=== PATIENT | male | born 1945 | race Caucasian/White ===

== ENCOUNTER 2017-07-22 16:21 | Inpatient (IN) | payer OTHER, MEDICARE ==
[~2017-07-22] VITALS: Ht 177.8 cm; Wt 75.0 kg
[2017-07-22 16:23] VITALS: BP 118/67; PULSE 81; RESP 16; TEMP 98.8; O2SAT 98
[2017-07-22] MEDS ORDERED: SODIUM CHLORIDE 0.9% FLUSH 10 ML FLUSH IVF PRN (17:15)
[2017-07-22 17:25] VITALS: BP 131/72; PULSE 78; RESP 18; O2SAT 98
[2017-07-22] MEDS ORDERED: METO1TAB42 PO (17:33)
[2017-07-22] MEDS ORDERED: PLAV75TA29 PO (17:33)
[2017-07-22] MEDS ORDERED: ISOS10TA3 PO (17:33)
[2017-07-22] MEDS ORDERED: BUPR100CR PO (17:34)
[2017-07-22] MEDS ORDERED: VITA1000 PO (17:34)
[2017-07-22] MEDS ORDERED: ASPI-516 CHEW (17:34)
[2017-07-22] MEDS ORDERED: VITAMIN B (17:34)
[2017-07-22] MEDS ORDERED: methylPREDNISolone SOD SUCC 125 MG/2 ML VIAL IV PUSH ONE (17:45)
--- NOTE | 2017-07-22 17:47 | RADRPT ---
EXAM DATE/TIME: 07/22/2017 17:28 [place] COMPARISON: No previous studies available for comparison. INDICATIONS : Shortness of breath, cough, and wheezing for one day. MEDICAL HISTORY : Chronic obstructive pulmonary disease. Hypertension Myocardial infarction. Stroke. SURGICAL HISTORY : CABG. ENCOUNTER: Initial ACUITY: 1 day PAIN SCORE: 0/10 LOCATION: Bilateral chest FINDINGS: A single view of the chest demonstrates the lungs to be hyperinflated with bilateral calcified granul omata. Bihilar granulomatous type calcifications are also present. There are parenchymal densities la terally in the right lower lung field which may represent additional areas of granulomatous disease a lthough early infiltrate cannot be excluded as these areas are not completely calcified. No associate d effusions. Heart size is normal. Intact median sternotomy wires. Osseous structures are intact. CONCLUSION: 1. Old granulomatous disease. 2. Airspace process laterally in the right lower lung field may represent additional areas of partial ly calcified granulomatous disease although early infiltrate cannot be excluded. I have no priors to establish chronicity. Noncontrasted CT scan of the chest be performed for further characterization if clinically warranted. Godwin Toro MD on July 22, 2017 at 17:42 Board Certified Radiologist. This report was verified electronically.
[2017-07-22 17:49] LABS: AUTOMATED NEUTROPHIL # 20.3 TH/MM3 (1.8-7.7); BASOPHIL # 0.1 TH/MM3 (0-0.2); BASOPHIL % 0.2 % (0.0-2.0); EOSINOPHIL % 0.1 % (0.0-4.0); HEMATOCRIT 41.1 % (39.0-51.0); HEMOGLOBIN 13.7 GM/DL (13.0-17.0); LYMPHOCYTE # 3.5 TH/MM3 (1.0-4.8); MEAN CORPUSCULAR HEMOGLOBIN 32.7 PG (27.0-34.0); MEAN CORPUSCULAR HGB CONC 33.4 % (32.0-36.0); MEAN PLATELET VOLUME 8.7 FL (7.0-11.0); MONO % 11.2 % (0.0-8.0); NEUT % 75.5 % (16.0-70.0); PLATELET COUNT 239 TH/MM3 (150-450); RED BLOOD COUNT 4.19 MIL/MM3 (4.50-5.90); RED CELL DISTRIBUTION WIDTH 13.7 % (11.6-17.2); WHITE BLOOD COUNT 26.9 TH/MM3 (4.0-11.0)
--- NOTE | 2017-07-22 17:50 | PD ---
HPI Chief Complaint: General Weakness Time Seen by Provider: 17:13 Travel History International Travel<30 days: No Contact w/Intl Traveler<30days: No Traveled to known affect area: No History of Present Illness HPI 71 year old male with history of [place] and COPD in ED presented with wheezing, " dry heaving" and chills onset this morning. The patient was concerned because he felt similar from his previous [place] in 2000. However he denies current chest pain, abd pain, N/V, and fevers. The patient has not been using his inhalers at home, and has been have a green sputum productive cough. He did get a flu shot this year. Risk Factors: Previous [place], CAD Modifying Factors: Associated sign and symptoms: Wheezing, SOB, cough PFSH Past Medical History Blood Disorders: No Cardiac Catheterization: Yes Cardiovascular Problems: Yes Chest Pain: Yes Cerebrovascular Accident: Yes Hypertension: Yes Inguinal Hernia: Yes Past Surgical History Cardiac Surgery: Yes (TRIPLE BYPASS) Social History Alcohol Use: No Tobacco Use: Yes (1 PPD) Substance Use: No Allergies-Medications (Allergen,Severity, Reaction): Coded Allergies: No Known Allergies (Verified Allergy, Unknown, 07/22/17) Reported Meds & Prescriptions Reported Meds & Active Scripts Active Reported Wellbutrin SR 12 HR (Bupropion HCl) 100 Mg Tab 100 Mg PO Q12HR [Vitamin B] Vitamin D-1000 (Cholecalciferol) 1,000 Unit Tab 1,000 Units PO DAILY Aspirin 81 Mg Chew 81 Mg CHEW DAILY Plavix (Clopidogrel Bisulfate) 75 Mg Tab 75 Mg PO DAILY Isosorbide Mononitrate 10 Mg Tab 10 Mg PO BID Take 2 doses 7 hours apart. Metoprolol Succinate ER 24 HR (Metoprolol Succinate) 25 Mg Tab 25 Mg PO DAILY Review of Systems Except as stated in HPI: all other systems reviewed are Neg Physical Exam Narrative GENERAL: Elderly appearing male resting in ED with fiance at bedside, no acute distress. SKIN: Warm and dry. HEAD: Atraumatic. Normocephalic. EYES: Pupils equal and round. No scleral icterus. No injection or drainage. ENT: No nasal bleeding or discharge. Mucous membranes pink and moist. NECK: Trachea midline. No JVD. Supple. CARDIOVASCULAR: Regular rate and rhythm. RESPIRATORY: No accessory muscle use. wheezing throughout, breath sounds equal bilaterally. GASTROINTESTINAL: Abdomen soft, non-tender, nondistended. Hepatic and splenic margins not palpable. MUSCULOSKELETAL: Extremities without clubbing, cyanosis, or edema. No obvious deformities. NEUROLOGICAL: Awake and alert. No obvious cranial nerve deficits. Motor grossly within normal limits. Five out of 5 muscle strength in the arms and legs. Normal speech. PSYCHIATRIC: Appropriate mood and affect; insight and judgment normal. Data Data Last Documented VS Vital Signs Date Time Temp Pulse Resp B/P (MAP) Pulse Ox O2 Delivery O2 Flow Rate FiO2 07/22/17 17:25 98 Room Air 07/22/17 17:25 78 18 07/22/17 17:25 07/22/17 16:23 98.8 Orders Orders Electrocardiogram (07/22/17 16:36) Complete Blood Count With Diff (07/22/17 16:36) Basic Metabolic Panel (Bmp) (07/22/17 16:36) Ckmb (Isoenzyme) Profile (07/22/17 16:36) Troponin I (07/22/17 16:36) Comprehensive Metabolic Panel (07/22/17 17:13) Act Partial Throm Time (Ptt) (07/22/17 17:13) Prothrombin Time / Inr (Pt) (07/22/17 17:13) Ckmb (Isoenzyme) Profile (07/22/17 17:13) Troponin I (07/22/17 17:13) Influenzae A/B Antigen (07/22/17 17:13) Iv Access Insert/Monitor (07/22/17 17:13) Electrocardiogram (07/22/17 17:13) Ecg Monitoring (07/22/17 17:13) Oximetry (07/22/17 17:13) Oxygen Administration (07/22/17 17:13) Chest, Single Ap (07/22/17 17:13) Sodium Chloride 0.9% Flush (Ns Flush) (07/22/17 17:15) Methylprednisolone So Succ Inj (Solumedr (07/22/17 17:45) Albuterol-Ipratropium Neb (Duoneb Neb) (07/22/17 17:45) Lactic Acid Sepsis Protocol (07/22/17 18:28) Blood Culture (07/22/17 18:28) Ceftriaxone Inj (Rocephin Inj) (07/22/17 18:30) Azithromycin Inj (Zithromax Inj) (07/22/17 18:30) Admit Order (Ed Use Only) (07/22/17 19:12) Methylprednisolone So Succ Inj (Solumedr (07/23/17 00:00) Albuterol-Ipratropium Neb (Duoneb Neb) (07/22/17 19:15) Budeson-Formot 160-4.5 Mcg Inh (Symbicor (07/22/17 21:00) Ceftriaxone Inj (Rocephin Inj) (07/23/17 19:00) Azithromycin Inj (Zithromax Inj) (07/23/17 19:00) Place In Observation (07/22/17 ) Vital Signs (Adult) Q4H (07/22/17 19:11) Activity Oob Ad Shabnam (07/22/17 19:11) Diet Regular Basic (07/23/17 Breakfast) Sodium Chloride 0.9% Flush (Ns Flush) (07/22/17 19:15) Sodium Chloride 0.9% Flush (Ns Flush) (07/22/17 21:00) Ondansetron Inj (Zofran Inj) (07/22/17 19:15) Comprehensive Metabolic Panel (07/23/17 06:00) Complete Blood Count With Diff (07/23/17 06:00) Scd Bilateral/Knee High ALEX.BID (07/22/17 19:11) Jake Bilateral/Knee High ALEX.QSHIFT (07/22/17 19:13) Acetaminophen (Tylenol) (07/22/17 19:15) Acetamin-Hydrocod 325-5 Mg (Ogden 5-325 (07/22/17 19:15) Acetamin-Hydrocod 325-10 Mg (Ogden 10-32 (07/22/17 19:15) Docusate Sodium-Senna (Kaylene-Colace) (07/22/17 21:00) Magnesium Hydroxide Liq (Milk Of Magnesi (07/22/17 19:15) Sennosides (Senokot) (07/22/17 19:15) Bisacodyl Supp (Dulcolax Supp) (07/22/17 19:15) Lactulose Liq (Lactulose Liq) (07/22/17 19:15) Aspirin Chew (Aspirin Chew) (07/23/17 09:00) Bupropion Sr 12 Hr (Wellbutrin Sr 12 Hr) (07/22/17 21:00) Clopidogrel (Plavix) (07/23/17 09:00) Isosorbide Mononitrate (Ismo) (07/22/17 21:00) Metoprolol Succinate Er (Toprol Xl) (07/23/17 09:00) Labs Laboratory Tests Test 07/22/17 17:22 07/22/17 17:35 White Blood Count 26.9 TH/MM3 Red Blood Count 4.19 MIL/MM3 Hemoglobin 13.7 GM/DL Hematocrit 41.1 % Mean Corpuscular Volume 98.0 FL Mean Corpuscular Hemoglobin 32.7 PG Mean Corpuscular Hemoglobin Concent 33.4 % Red Cell Distribution Width 13.7 % Platelet Count 239 TH/MM3 Mean Platelet Volume 8.7 FL Neutrophils (%) (Auto) 75.5 % Lymphocytes (%) (Auto) 13.0 % Monocytes (%) (Auto) 11.2 % Eosinophils (%) (Auto) 0.1 % Basophils (%) (Auto) 0.2 % Neutrophils # (Auto) 20.3 TH/MM3 Lymphocytes # (Auto) 3.5 TH/MM3 Monocytes # (Auto) 3.0 TH/MM3 Eosinophils # (Auto) 0.0 TH/MM3 Basophils # (Auto) 0.1 TH/MM3 CBC Comment AUTO DIFF Differential Total Cells Counted 100 Neutrophils % (Manual) 71 % Band Neutrophils % 8 % Lymphocytes % 9 % Monocytes % 12 % Neutrophils # (Manual) 21.3 TH/MM3 Differential Comment FINAL DIFF MANUAL Platelet Estimate NORMAL Platelet Morphology Comment NORMAL Blood Urea Nitrogen 22 MG/DL Creatinine 1.17 MG/DL Random Glucose 92 MG/DL Calcium Level 9.2 MG/DL Sodium Level 137 MEQ/L Potassium Level 4.5 MEQ/L Chloride Level 101 MEQ/L Carbon Dioxide Level 28.2 MEQ/L Anion Gap 8 MEQ/L Estimat Glomerular Filtration Rate 61 ML/MIN Total Creatine Kinase 48 U/L Troponin I LESS THAN 0.02 NG/ML Prothrombin Time 10.7 SEC Prothromb Time International Ratio 1.1 RATIO Activated Partial Thromboplast Time 24.9 SEC MDM Medical Decision Making Medical Screen Exam Complete: Yes Emergency Medical Condition: Yes Medical Record Reviewed: Yes Interpretation(s) EKG shows sinus rhythm at a rate of 79 bpm with no signs of acute ST changes. Laboratory Tests Test 07/22/17 17:22 07/22/17 17:35 White Blood Count 26.9 TH/MM3 (4.0-11.0) Red Blood Count 4.19 MIL/MM3 (4.50-5.90) Neutrophils (%) (Auto) 75.5 % (16.0-70.0) Monocytes (%) (Auto) 11.2 % (0.0-8.0) Neutrophils # (Auto) 20.3 TH/MM3 (1.8-7.7) Monocytes # (Auto) 3.0 TH/MM3 (0-0.9) Neutrophils % (Manual) 71 % (16-70) Band Neutrophils % 8 % (0-6) Monocytes % 12 % (0-8) Neutrophils # (Manual) 21.3 TH/MM3 (1.8-7.7) Blood Urea Nitrogen 22 MG/DL (7-18) Estimat Glomerular Filtration Rate 61 ML/MIN (>89) Troponin I LESS THAN 0.02 NG/ML Last 24 hours Impressions Chest X-Ray 07/22/17 1713 Signed Impressions: Service Date/Time: Saturday, July 22, 2017 17:28 - CONCLUSION: 1. Old granulomatous disease. 2. Airspace process laterally in the right lower lung field may represent additional areas of partially calcified granulomatous disease although early infiltrate cannot be excluded. I have no priors to establish chronicity. Noncontrasted CT scan of the chest be performed for further characterization if clinically warranted. Godwin Toro MD Differential Diagnosis Influenza versus sepsis versus pneumonia versus bronchitis versus COPD exacerbation Narrative Course There is notable right lower lobe infiltrate and along with patient's symptoms, there is concern for possible underlying pneumonia. He was treated with Solu- Medrol and nebulizers in the ER lab work does show significant leukocytosis and IV antibiotics were initiated in the ER. At this point, my plan would be to admit the patient for further treatment. Case was discussed with Dr. Weems for admission. Diagnosis Primary Impression: COPD exacerbation Additional Impressions: Pneumonia Leukocytosis Admitting Information Admitting Physician Requests: Admit Omar Mohamud MD Jul 22, 2017 17:50
[2017-07-22 17:57] LABS: BICARBONATE 28.2 MEQ/L (21.0-32.0); BLOOD UREA NITROGEN 22 MG/DL (7-18); CALCIUM 9.2 MG/DL (8.5-10.1); CHLORIDE 101 MEQ/L (98-107); CREATININE 1.17 MG/DL (0.60-1.30); GLOMERULAR FILTRATION RATE 61 ML/MIN (>89); GLUCOSE,RANDOM 92 MG/DL (74-106); SODIUM (NA) 137 MEQ/L (136-145)
[2017-07-22 18:01] LABS: TROPONIN I LESS THAN 0.02 NG/ML (0.02-0.05)
[2017-07-22 18:08] LABS: INTERNATIONAL NORMALIZED RATIO 1.1 RATIO; PROTHROMBIN TIME - PATIENT 10.7 SEC (9.8-11.6)
[2017-07-22] MEDS ORDERED: cefTRIAXone INJ 1,000 MG in SODIUM CHLORIDE 0.9% INJ 100 ML IV ONE (18:30)
[2017-07-22] MEDS ORDERED: AZITHROMYCIN INJ 500 MG in SODIUM CHLOR 0.9% 250 ML INJ 250 ML IV ONE (18:30)
[2017-07-22 18:34] LABS: BANDS 8 % (0-6); LYMPHOCYTES 9 % (9-44); MONOCYTES 12 % (0-8); NEUTROPHIL # MANUAL DIFF 21.3 TH/MM3 (1.8-7.7); POLYS (SEG NEUTROPHILS) 71 % (16-70)
[2017-07-22] MEDS: RESP: ALBUTEROL 2.5 MG/IPRATROPIUM 0.5 MG NEB (SCH) INH (18:34)
--- NOTE | 2017-07-22 19:14 | HHI.HP ---
[facility] Service [facility] Primary Care Physician [facility] Admission Diagnosis COPD exacerbation/pneumonia/sepsis Diagnoses: (1) COPD (chronic obstructive pulmonary disease) Diagnosis: Principal (2) PNA (pneumonia) Diagnosis: Principal (3) Bandemia Diagnosis: Principal (4) Tobacco abuse Diagnosis: Principal Travel History International Travel<30 Days: No Contact w/Intl Traveler <30 Da: No Traveled to Known Affected Are: No History of Present Illness This is a 71-year-old male with a PMH of HTN, CAD, COPD and Tobacco Abuse who presented to the ER with complaints of cough and wheezing starting earlier today. states pt had episode of "dry heaving" and was concerned he was having a heart attack. No c/o chest pain. SOB is moderate, associated w/ wheezing, intermittent and worse w/ exertion. Reports subjective fever/chills. On arrival, BP 131/72, HR 78, O2 sat 98% on RA, Afebrile. WBC 26.9, bands 8% . Chemistry essentially unremarkable. BUN 22. Troponin negative. INR 1.1. CXR with old granulomatous disease, right lower lung infiltrate. S/p Rocephin/ Zithro, Solu-Medrol in ER. Review of Systems Except as stated in HPI: all other systems reviewed are Neg ROS: 14 point review of systems otherwise negative. Past Family Social History Past Medical History PMH: HTN, CAD, COPD and Tobacco Abuse Past Surgical History PAST SURGICAL HISTORY: CABG Allergies: Coded Allergies: No Known Allergies (Verified Allergy, Unknown, 07/22/17) Family History PAST FAMILY HISTORY: Reviewed. No h/o DM or CAD Social History PAST SOCIAL HISTORY: Negative for alcohol or drugs. Smokes 1ppd. Physical Exam Vital Signs Vital Signs Date Time Temp Pulse Resp B/P (MAP) Pulse Ox O2 Delivery O2 Flow Rate FiO2 07/22/17 17:25 98 Room Air 07/22/17 17:25 78 18 98 Room Air 07/22/17 17:25 98 Room Air 07/22/17 17:25 78 18 131/72 (91) 98 Room Air 07/22/17 16:23 98.8 81 16 118/67 (73) 98 Physical Exam PE: GENERAL: Very pleasant middle-aged white male in no acute distress. at bedside. HEENT: PERRLA, EOMI. No scleral icterus or conjunctival pallor. No lid lag or facial droop. CARDIOVASCULAR: Regular rate and rhythm. No obvious murmurs to auscultation. No chest tenderness to palpation. RESPIRATORY: No obvious rhonchi, intermittent wheezing. Clear to auscultation. Breath sounds equal bilaterally. GASTROINTESTINAL: Abdomen soft, non-tender, nondistended. BS normal. MUSCULOSKELETAL: Extremities without clubbing, cyanosis, or edema. No obvious deformities. NEUROLOGICAL: Awake, alert and oriented x4. No focal neurologic deficits. Moving both upper and lower extremities spontaneously. Laboratory Laboratory Tests Test 07/22/17 17:22 07/22/17 17:35 White Blood Count 26.9 Red Blood Count 4.19 Hemoglobin 13.7 Hematocrit 41.1 Mean Corpuscular Volume 98.0 Mean Corpuscular Hemoglobin 32.7 Mean Corpuscular Hemoglobin Concent 33.4 Red Cell Distribution Width 13.7 Platelet Count 239 Mean Platelet Volume 8.7 Neutrophils (%) (Auto) 75.5 Lymphocytes (%) (Auto) 13.0 Monocytes (%) (Auto) 11.2 Eosinophils (%) (Auto) 0.1 Basophils (%) (Auto) 0.2 Neutrophils # (Auto) 20.3 Lymphocytes # (Auto) 3.5 Monocytes # (Auto) 3.0 Eosinophils # (Auto) 0.0 Basophils # (Auto) 0.1 CBC Comment AUTO DIFF Differential Total Cells Counted 100 Neutrophils % (Manual) 71 Band Neutrophils % 8 Lymphocytes % 9 Monocytes % 12 Neutrophils # (Manual) 21.3 Differential Comment FINAL DIFF MANUAL Platelet Estimate NORMAL Platelet Morphology Comment NORMAL Blood Urea Nitrogen 22 Creatinine 1.17 Random Glucose 92 Calcium Level 9.2 Sodium Level 137 Potassium Level 4.5 Chloride Level 101 Carbon Dioxide Level 28.2 Anion Gap 8 Estimat Glomerular Filtration Rate 61 Total Creatine Kinase 48 Troponin I LESS THAN 0.02 Prothrombin Time 10.7 Prothromb Time International Ratio 1.1 Activated Partial Thromboplast Time 24.9 Date/Time Source Procedure Growth Status 07/22/17 17:35 Nasal Washing Influenza Types A,B Antigen (SHAY) - Final NEGATIVE FOR FLU A AND B ANTIGEN.... Complete Result Diagram: 07/22/17 17207/22/17 172 Caprini VTE Risk Assessment Caprini VTE Risk Assessment: No/Low Risk (score <= 1) Caprini Risk Assessment Model Point Value = 1 Point Value = 2 Point Value = 3 Point Value = 5 Age 41-60 Minor surgery BMI > 25 kg/m2 Swollen legs Varicose veins or History of unexplained or recurrent spontaneous Oral contraceptives or hormone replacement Sepsis (< 1 month) Serious lung disease, including pneumonia (< 1 month) Abnormal pulmonary function Acute myocardial infarction Congestive heart failure (< 1 month) History of inflammatory bowel disease Medical patient at bed rest Age 61-74 Arthroscopic surgery Major open surgery (> 45 min) Laparoscopic surgery (> 45 min) Malignancy Confined to bed (> 72 hours) Immobilizing plaster cast Central venous access Age >= 75 History of VTE Family history of VTE Factor V Leiden Prothrombin [id number] Lupus anticoagulant Anticardiolipin antibodies Elevated serum homocysteine Heparin-induced thrombocytopenia Other congenital or acquired thrombophilia Stroke (< 1 month) Elective arthroplasty Hip, pelvis, or leg fracture Acute spinal cord injury (< 1 month) Prophylaxis Regimen Total Risk Factor Score Risk Level Prophylaxis Regimen 0-1 Low Early ambulation 2 Moderate Order ONE of the following: *Sequential Compression Device (SCD) *Heparin 5000 units SQ BID 3-4 Higher Order ONE of the following medications: *Heparin 5000 units SQ TID *Enoxaparin/Lovenox 40 mg SQ daily (WT < 150 kg, CrCl > 30 mL/min) *Enoxaparin/Lovenox 30 mg SQ daily (WT < 150 kg, CrCl > 10-29 mL/min) *Enoxaparin/Lovenox 30 mg SQ BID (WT < 150 kg, CrCl > 30 mL/min) AND/OR *Sequential Compression Device (SCD) 5 or more Highest Order ONE of the following medications: *Heparin 5000 units SQ TID (Preferred with Epidurals) *Enoxaparin/Lovenox 40 mg SQ daily (WT < 150 kg, CrCl > 30 mL/min) *Enoxaparin/Lovenox 30 mg SQ daily (WT < 150 kg, CrCl > 10-29 mL/min) *Enoxaparin/Lovenox 30 mg SQ BID (WT < 150 kg, CrCl > 30 mL/min) AND *Sequential Compression Device (SCD) Assessment and Plan Problem List: (1) COPD (chronic obstructive pulmonary disease) ICD Code: J44.9 - Chronic obstructive pulmonary disease, unspecified (2) PNA (pneumonia) ICD Code: J18.9 - Pneumonia, unspecified organism (3) Bandemia ICD Code: D72.825 - Bandemia (4) Tobacco abuse ICD Code: Z72.0 - Tobacco use Assessment and Plan A/P: 1. COPD: Chronic Respiratory Failure w/ Acute Exacerbation. Moderate-Severe. +persistent wheezing despite treatment. Solu-Medrol, DuoNeb, Symbicort, Mucinex. Monitor O2. 2. PNA: CXR w/ old granulomatous disease, likely RLL infiltrate, images reviewed by me. S/p Rocephin/Zithro in ER, continue w/ IV Abx, DuoNeb prn. Check Sputum Cultures. 3. Bandemia: WBC 26.9 w/ bandemia 8%, reports h/o chronically elevated WBC, s/p eval at ID, BM biopsy negative per . Bandemia likely secondary to acute PNA, will repeat labs in am. 4. Tobacco Abuse: Pt counselled. NicoDerm prn if needed. 5. DVT Prophylaxis: SCD/Teds. 6. Social work for d/c planning as needed. 7. Case discussed w/ ER physician at length, labs/imaging/records reviewed by me. Carito Weems MD Jul 22, 2017 19:14
[2017-07-22] MEDS ORDERED: SENNOSIDES 8.6 MG TAB PO PRN (19:15)
[2017-07-22] MEDS ORDERED: BISACODYL 10 MG SUPP RECTAL PRN (19:15)
[2017-07-22] MEDS ORDERED: SODIUM CHLORIDE 0.9% FLUSH 10 ML FLUSH IV FLUSH PRN (19:15)
[2017-07-22] MEDS ORDERED: ONDANSETRON HCL 4 MG/2 ML VIAL IVP PRN (19:15)
[2017-07-22] MEDS ORDERED: ACETAMINOPHEN 325 MG TAB PO PRN (19:15)
[2017-07-22] MEDS ORDERED: ACETAMINOPHEN/HYDROcodone 325 MG/10 MG TAB PO PRN (19:15)
[2017-07-22] MEDS ORDERED: MAGNESIUM HYDROXIDE SUSP 30 ML CUP PO PRN (19:15)
[2017-07-22] MEDS ORDERED: LACTULOSE SYRUP 20 GM/30 ML CUP PO PRN (19:15)
[2017-07-22] MEDS ORDERED: ACETAMINOPHEN/HYDROcodone 325 MG/5 MG TAB PO PRN (19:15)
[2017-07-22] MEDS ORDERED: RESP: ALBUTEROL 2.5 MG/IPRATROPIUM 0.5 MG NEB (PRN) NEB (19:15)
[2017-07-22] MEDS: BUDESONIDE-FORMOTEROL 160/4.5 MCG INHALER INH SCH (23:16)
[2017-07-22] MEDS: buPROPion HCL 100 MG SUSTAINED RELEASE TAB PO SCH (23:17)
[2017-07-22] MEDS: DOCUSATE SODIUM 50 MG/SENNA 8.6 MG TAB PO SCH (23:17)
[2017-07-22] MEDS: ISOSORBIDE MONONITRATE 20 MG TAB PO SCH (23:17)
[2017-07-22] MEDS: SODIUM CHLORIDE 0.9% FLUSH 10 ML FLUSH IV FLUSH SCH (23:18)
[2017-07-22] MEDS: methylPREDNISolone SOD SUCC 40 MG/1 ML VIAL IV PUSH SCH ×2 (23:18→23:25)
[2017-07-23] VITALS (9 sets, daily range): BP systolic 110–132; BP diastolic 56–65; PULSE 70–82; RESP 18–20; TEMP 98–98.9; O2SAT 94–98
[2017-07-23 01:34] LABS: ALKALINE PHOSPHATASE 66 U/L (45-117); ALT (GPT) 17 U/L (12-78); AST (GOT) 10 U/L (15-37); BICARBONATE 23.5 MEQ/L (21.0-32.0); BLOOD UREA NITROGEN 24 MG/DL (7-18); CALCIUM 8.1 MG/DL (8.5-10.1); CHLORIDE 104 MEQ/L (98-107); CREATININE 1.19 MG/DL (0.60-1.30); GLOMERULAR FILTRATION RATE 60 ML/MIN (>89); GLUCOSE,RANDOM 280 MG/DL (74-106); SODIUM (NA) 138 MEQ/L (136-145); TOTAL BILIRUBIN ADULT 0.4 MG/DL (0.2-1.0); TOTAL PROTEIN 6.6 GM/DL (6.4-8.2); TROPONIN I LESS THAN 0.02 NG/ML (0.02-0.05)
[2017-07-23 01:35] LABS: LACTIC ACID SEPSIS PROTOCOL 4.4 mmol/L (0.4-2.0)
[2017-07-23] MEDS ORDERED: SODIUM CHLOR 0.9% 250 ML INJ 250 ML IV ONE (02:00)
[2017-07-23] MEDS ORDERED: SODIUM CHLOR 0.9% 1000 ML INJ 1,000 ML IV ONE ×2 (02:00)
[2017-07-23] MEDS ORDERED: ISOS10TA PO (04:53)
[2017-07-23] MEDS ORDERED: TAMS0.4C4 PO (04:53)
[2017-07-23] MEDS ORDERED: BUPR75TA PO (04:53)
[2017-07-23] MEDS ORDERED: DIVA250T3 PO (04:53)
[2017-07-23] MEDS ORDERED: ALPR0.5T3 PO (04:53)
[2017-07-23] MEDS ORDERED: ATOR80TA45 PO (04:53)
[2017-07-23] MEDS ORDERED: LISI-515 PO (04:53)
[2017-07-23] MEDS ORDERED: METO50TA PO (04:53)
[2017-07-23] MEDS: methylPREDNISolone SOD SUCC 40 MG/1 ML VIAL IV PUSH SCH ×3 (05:48→17:56)
[2017-07-23 08:14] LABS: AUTOMATED NEUTROPHIL # 15.2 TH/MM3 (1.8-7.7); BASOPHIL % 0.2 % (0.0-2.0); HEMATOCRIT 33.3 % (39.0-51.0); HEMOGLOBIN 11.4 GM/DL (13.0-17.0); LYMPH % 6.1 % (9.0-44.0); MEAN CELL VOLUME 97.1 FL (80.0-100.0); MEAN CORPUSCULAR HEMOGLOBIN 33.2 PG (27.0-34.0); MEAN CORPUSCULAR HGB CONC 34.2 % (32.0-36.0); MEAN PLATELET VOLUME 8.6 FL (7.0-11.0); MONO % 2.9 % (0.0-8.0); MONOCYTE # 0.5 TH/MM3 (0-0.9); NEUT % 90.8 % (16.0-70.0); PLATELET COUNT 222 TH/MM3 (150-450); RED BLOOD COUNT 3.43 MIL/MM3 (4.50-5.90); WHITE BLOOD COUNT 16.8 TH/MM3 (4.0-11.0)
[2017-07-23 08:48] LABS: ALBUMIN 2.7 GM/DL (3.4-5.0); ALKALINE PHOSPHATASE 60 U/L (45-117); ALT (GPT) 14 U/L (12-78); AST (GOT) 10 U/L (15-37); BLOOD UREA NITROGEN 23 MG/DL (7-18); CALCIUM 7.7 MG/DL (8.5-10.1); CHLORIDE 110 MEQ/L (98-107); CREATININE 0.78 MG/DL (0.60-1.30); GLOMERULAR FILTRATION RATE 98 ML/MIN (>89); GLUCOSE,RANDOM 148 MG/DL (74-106); SODIUM (NA) 141 MEQ/L (136-145); TOTAL BILIRUBIN ADULT 0.3 MG/DL (0.2-1.0); TROPONIN I 0.23 NG/ML (0.02-0.05)
[2017-07-23] MEDS ORDERED: METOPROLOL SUCCINATE 25 MG EXTENDED RELEASE TAB PO SCH (09:00)
[2017-07-23] MEDS: DOCUSATE SODIUM 50 MG/SENNA 8.6 MG TAB PO SCH ×2 (09:37→21:00)
[2017-07-23] MEDS: ISOSORBIDE MONONITRATE 20 MG TAB PO SCH (09:37)
[2017-07-23] MEDS: buPROPion HCL 100 MG SUSTAINED RELEASE TAB PO SCH ×2 (09:37→22:08)
[2017-07-23] MEDS: ASPIRIN 81 MG CHEW TAB CHEW SCH (09:38)
[2017-07-23] MEDS: BUDESONIDE-FORMOTEROL 160/4.5 MCG INHALER INH SCH ×2 (09:38→20:12)
[2017-07-23] MEDS: CLOPIDOGREL 75 MG TAB PO SCH (09:38)
[2017-07-23] MEDS: SODIUM CHLORIDE 0.9% FLUSH 10 ML FLUSH IV FLUSH SCH ×2 (09:39→22:07)
--- NOTE | 2017-07-23 10:41 | HHI.PR ---
Subjective Remarks This is a 71-year-old male with a PMH of HTN, CAD, COPD and Tobacco Abuse who presented to the ER with complaints of cough and wheezing starting earlier today. states pt had episode of "dry heaving" and was concerned he was having a heart attack. No c/o chest pain. SOB is moderate, associated w/ wheezing, intermittent and worse w/ exertion. Reports subjective fever/chills. On arrival, BP 131/72, HR 78, O2 sat 98% on RA, Afebrile. WBC 26.9, bands 8% . Chemistry essentially unremarkable. BUN 22. Troponin negative. INR 1.1. CXR with old granulomatous disease, right lower lung infiltrate. S/p Rocephin/ Zithro, Solu-Medrol in ER. 2-10 STATES HE FEELS BETTER AND WANTS TO GO HOME EXPLAINED TO HIM THAT HE NEEDS TO FOLLOW UP WITH THE [facility] AND NEEDS TO FILL HIS RX BEFORE GOING TO THE [facility] SINCE CLOSED OVER THE WEEKEND HAS POSITIVE TROPONIN- SUSPECT DEMAND ISCHEMIA WILL CONSULT CARDIOLOGY CANNOT BE DCED TO HOME YET Objective Vitals Vital Signs Date Time Temp Pulse Resp B/P (MAP) Pulse Ox O2 Delivery O2 Flow Rate FiO2 07/23/17 08:16 98.9 73 20 125/65 (85) 96 07/23/17 04:41 98.1 78 18 132/60 (84) 94 07/23/17 04:08 75 07/23/17 01:38 98.0 82 20 113/58 (76) 94 07/22/17 21:07 07/22/17 17:25 98 Room Air 07/22/17 17:25 78 18 98 Room Air 07/22/17 17:25 98 Room Air 07/22/17 17:25 78 18 131/72 (91) 98 Room Air 07/22/17 16:23 98.8 81 16 118/67 (84) 98 I/O 07/22/17 07/22/17 07/22/17 07/23/17 07/23/17 07/23/17 07:00 15:00 23:00 07:00 15:00 23:00 Intake Total 350 ml 2250 ml Balance 350 ml 2250 ml Intake IV Total 350 ml 2250 ml # Voids 3 # Bowel Movements 0 Result Diagram: 07/23/17 0750 07/23/17 0750 Other Results Laboratory Tests Test 07/22/17 17:22 07/22/17 17:35 07/23/17 00:43 07/23/17 00:48 White Blood Count 26.9 TH/MM3 Red Blood Count 4.19 MIL/MM3 Hemoglobin 13.7 GM/DL Hematocrit 41.1 % Mean Corpuscular Volume 98.0 FL Mean Corpuscular Hemoglobin 32.7 PG Mean Corpuscular Hemoglobin Concent 33.4 % Red Cell Distribution Width 13.7 % Platelet Count 239 TH/MM3 Mean Platelet Volume 8.7 FL Neutrophils (%) (Auto) 75.5 % Lymphocytes (%) (Auto) 13.0 % Monocytes (%) (Auto) 11.2 % Eosinophils (%) (Auto) 0.1 % Basophils (%) (Auto) 0.2 % Neutrophils # (Auto) 20.3 TH/MM3 Lymphocytes # (Auto) 3.5 TH/MM3 Monocytes # (Auto) 3.0 TH/MM3 Eosinophils # (Auto) 0.0 TH/MM3 Basophils # (Auto) 0.1 TH/MM3 CBC Comment AUTO DIFF Differential Total Cells Counted 100 Neutrophils % (Manual) 71 % Band Neutrophils % 8 % Lymphocytes % 9 % Monocytes % 12 % Neutrophils # (Manual) 21.3 TH/MM3 Differential Comment FINAL DIFF MANUAL Platelet Estimate NORMAL Platelet Morphology Comment NORMAL Blood Urea Nitrogen 22 MG/DL 24 MG/DL Creatinine 1.17 MG/DL 1.19 MG/DL Random Glucose 92 MG/DL 280 MG/DL Calcium Level 9.2 MG/DL 8.1 MG/DL Sodium Level 137 MEQ/L 138 MEQ/L Potassium Level 4.5 MEQ/L 3.8 MEQ/L Chloride Level 101 MEQ/L 104 MEQ/L Carbon Dioxide Level 28.2 MEQ/L 23.5 MEQ/L Anion Gap 8 MEQ/L 11 MEQ/L Estimat Glomerular Filtration Rate 61 ML/MIN 60 ML/MIN Total Creatine Kinase 48 U/L 42 U/L Troponin I LESS THAN 0.02 NG/ML LESS THAN 0.02 NG/ML Prothrombin Time 10.7 SEC Prothromb Time International Ratio 1.1 RATIO Activated Partial Thromboplast Time 24.9 SEC Total Protein 6.6 GM/DL Albumin 3.0 GM/DL Alkaline Phosphatase 66 U/L Aspartate Amino Transf (AST/SGOT) 10 U/L Alanine Aminotransferase (ALT/SGPT) 17 U/L Total Bilirubin 0.4 MG/DL Lactic Acid Level 4.4 mmol/L Test 07/23/17 05:08 07/23/17 07:50 Lactic Acid Level 3.3 mmol/L White Blood Count 16.8 TH/MM3 Red Blood Count 3.43 MIL/MM3 Hemoglobin 11.4 GM/DL Hematocrit 33.3 % Mean Corpuscular Volume 97.1 FL Mean Corpuscular Hemoglobin 33.2 PG Mean Corpuscular Hemoglobin Concent 34.2 % Red Cell Distribution Width 14.0 % Platelet Count 222 TH/MM3 Mean Platelet Volume 8.6 FL Neutrophils (%) (Auto) 90.8 % Lymphocytes (%) (Auto) 6.1 % Monocytes (%) (Auto) 2.9 % Eosinophils (%) (Auto) 0.0 % Basophils (%) (Auto) 0.2 % Neutrophils # (Auto) 15.2 TH/MM3 Lymphocytes # (Auto) 1.0 TH/MM3 Monocytes # (Auto) 0.5 TH/MM3 Eosinophils # (Auto) 0.0 TH/MM3 Basophils # (Auto) 0.0 TH/MM3 CBC Comment DIFF FINAL Differential Comment Blood Urea Nitrogen 23 MG/DL Creatinine 0.78 MG/DL Random Glucose 148 MG/DL Total Protein 6.0 GM/DL Albumin 2.7 GM/DL Calcium Level 7.7 MG/DL Alkaline Phosphatase 60 U/L Aspartate Amino Transf (AST/SGOT) 10 U/L Alanine Aminotransferase (ALT/SGPT) 14 U/L Total Bilirubin 0.3 MG/DL Sodium Level 141 MEQ/L Potassium Level 4.0 MEQ/L Chloride Level 110 MEQ/L Carbon Dioxide Level 23.0 MEQ/L Anion Gap 8 MEQ/L Estimat Glomerular Filtration Rate 98 ML/MIN Troponin I 0.23 NG/ML Imaging Last Impressions Chest X-Ray 07/22/17 1713 Signed Impressions: Service Date/Time: Saturday, July 22, 2017 17:28 - CONCLUSION: 1. Old granulomatous disease. 2. Airspace process laterally in the right lower lung field may represent additional areas of partially calcified granulomatous disease although early infiltrate cannot be excluded. I have no priors to establish chronicity. Noncontrasted CT scan of the chest be performed for further characterization if clinically warranted. Godwin Toro MD Objective Remarks GENERAL: Awake alert oriented 3 talkative and cooperative does not appear to be in any distress SKIN: Warm and dry. HEAD: Atraumatic. Normocephalic. EYES: Pupils equal and round. No scleral icterus. No injection or drainage. Extractor muscles intact ENT: No nasal bleeding or discharge. Mucous membranes pink and moist. Tongue is midline NECK: Trachea midline. No JVD. Supple CARDIOVASCULAR: Regular rate and rhythm. S1 and S2 no S3 or S4 RESPIRATORY: No accessory muscle use. Breath sounds equal bilaterally. Coarse breath sounds bilaterally with some wheezes GASTROINTESTINAL: Abdomen soft, non-tender, nondistended. Hepatic and splenic margins not palpable. MUSCULOSKELETAL: Extremities without clubbing, cyanosis, or edema. No obvious deformities. NEUROLOGICAL: Awake and alert. No obvious cranial nerve deficits. Motor grossly within normal limits. Five out of 5 muscle strength in the arms and legs. Normal speech. PSYCHIATRIC: Appropriate mood and affect; insight and judgment normal. Procedures NONE Medications and IVs Current Medications Sodium Chloride (NS Flush) 2 ml UNSCH PRN IVF FLUSH AFTER USING IV ACCESS; Start 07/22/17 at 17:15; Stop 07/23/17 at 01:56; Status DC Methylprednisolone Sodium Succinate (SoluMEDROL INJ) 125 mg ONCE ONCE IV PUSH Last administered on 07/22/17at 18:10; Start 07/22/17 at 17:45; Stop 07/22/17 at 17: 46; Status DC Albuterol/ Ipratropium (Duoneb Neb) 1 ampule Q15M INH Last administered on at 18:34; Start 07/22/17 at 17:45; Stop 07/22/17 at 18:01; Status DC Ceftriaxone Sodium 1000 mg/ Sodium Chloride 100 ml @ 200 mls/hr ONCE ONCE IV Last administered on 07/22/17at 19:53; Start 07/22/17 at 18:30; Stop 07/22/17 at 18: 59; Status DC Azithromycin 500 mg/Sodium Chloride 250 ml @ 250 mls/hr ONCE ONCE IV Last administered on 07/22/17at 21:39; Start 07/22/17 at 18:30; Stop 07/22/17 at 19:29; Status DC Methylprednisolone Sodium Succinate (SoluMEDROL INJ) 40 mg Q6HR IV PUSH Last administered on 07/23/17at 05:48; Start 07/23/17 at 00:00 Albuterol/ Ipratropium (Duoneb Neb) 1 ampule Q4HR NEB PRN NEB SOB/WHEEZING; Start 07/22/17 at 19:15 Budesonide/ Formoterol Fumarate (Symbicort 160-4.5 Mcg Inh) 2 puff Q12HR INH Last administered on 07/23/17at 09:38; Start 07/22/17 at 21:00 Ceftriaxone Sodium 1000 mg/ Sodium Chloride 100 ml @ 200 mls/hr Q24H IV ; Start 07/23/17 at 20:00 Azithromycin 500 mg/Sodium Chloride 250 ml @ 250 mls/hr Q24H IV ; Start at 20:00 Sodium Chloride (NS Flush) 2 ml UNSCH PRN IV FLUSH FLUSH AFTER USING IV ACCESS ; Start 07/22/17 at 19:15 Sodium Chloride (NS Flush) 2 ml BID IV FLUSH Last administered on 07/23/17at 09: 39; Start 07/22/17 at 21:00 Ondansetron HCl (Zofran Inj) 4 mg Q6H PRN IVP NAUSEA OR VOMITING; Start at 19:15 Acetaminophen (Tylenol) 650 mg Q6H PRN PO FEVER/PAIN SCALE 1 TO 2; Start at 19:15 Acetaminophen/ Hydrocodone Bitart ([place] 5-325 Mg) 1 tab Q4H PRN PO PAIN SCALE 3 TO 5; Start 07/22/17 at 19:15 Acetaminophen/ Hydrocodone Bitart ([place] 10-325 Mg) 1 tab Q4H PRN PO PAIN SCALE 6 TO 10; Start 07/22/17 at 19:15 Senna/Docusate Sodium (Kay[place]-Colace) 1 tab BID PO Last administered on at 09:37; Start 07/22/17 at 21:00 Magnesium Hydroxide (Milk Of Magnesia Liq) 30 ml Q12H PRN PO Mild constipation ; Start 07/22/17 at 19:15 Sennosides (Senokot) 17.2 mg Q12H PRN PO Moderate constipation; Start 07/22/17 at 19:15 Bisacodyl (Dulcolax Supp) 10 mg DAILY PRN RECTAL SEVERE CONSITIPATION; Start at 19:15 Lactulose (Lactulose Liq) 30 ml DAILY PRN PO SEVERE CONSITIPATION; Start at 19:15 Aspirin (Aspirin Chew) 81 mg DAILY CHEW Last administered on 07/23/17at 09:38; Start 07/23/17 at 09:00 Bupropion HCl (Wellbutrin Sr 12 Hr) 100 mg Q12HR PO Last administered on at 09:37; Start 07/22/17 at 21:00 Clopidogrel Bisulfate (Plavix) 75 mg DAILY PO Last administered on 07/23/17at 09 :38; Start 07/23/17 at 09:00 Isosorbide Mononitrate (Ismo) 10 mg BID PO Last administered on 07/23/17 09:37 ; Start 07/22/17 at 21:00 Metoprolol Succinate (Toprol Xl) 25 mg DAILY PO Last administered on 07/23/17at 09:37; Start 07/23/17 at 09:00 Sodium Chloride 1,000 ml @ 999 mls/hr BOLUS ONCE IV Last administered on 07/23at 02:16; Start 07/23/17 at 02:00; Stop 07/23/17 at 03:00; Status DC Sodium Chloride 1,000 ml @ 999 mls/hr BOLUS ONCE IV Last administered on 07/23at 03:27; Start 07/23/17 at 02:00; Stop 07/23/17 at 03:00; Status DC Sodium Chloride 250 ml @ 250 mls/hr BOLUS ONCE IV Last administered on at 04:24; Start 07/23/17 at 02:00; Stop 07/23/17 at 02:59; Status DC A/P Problem List: (1) COPD (chronic obstructive pulmonary disease) ICD Code: J44.9 - Chronic obstructive pulmonary disease, unspecified (2) PNA (pneumonia) ICD Code: J18.9 - Pneumonia, unspecified organism (3) Bandemia ICD Code: D72.825 - Bandemia (4) Tobacco abuse ICD Code: Z72.0 - Tobacco use Assessment and Plan A/P: 1. COPD: Chronic Respiratory Failure w/ Acute Exacerbation. Moderate-Severe. +persistent wheezing despite treatment. Solu-Medrol, DuoNeb, Symbicort, Mucinex. Monitor O2. 2. PNA: CXR w/ old granulomatous disease, likely RLL infiltrate, images reviewed by me. S/p Rocephin/Zithro in ER, continue w/ IV Abx, DuoNeb prn. Check Sputum Cultures. 3. Bandemia: WBC 26.9 w/ bandemia 8%, reports h/o chronically elevated WBC, s/p eval at [facility], BM biopsy negative per . Bandemia likely secondary to acute PNA, will repeat labs in am. 4. Tobacco Abuse: Pt counselled. NicoDerm prn if needed. Positive troponin will consult cardiology get an echocardiogram suspect the positive troponin is due to demand ischemia due to the breathing but we'll get cardiac evaluation 5. DVT Prophylaxis: SCD/Teds. 6. Social work for d/c planning as needed. 7. Case discussed w/ ER physician at length, labs/imaging/records reviewed by me. Discharge Planning DC on hold until cleared by cardiology since patient will need to follow-up at the [facility] to get his medications Curt Briones DO Jul 23, 2017 10:41
[2017-07-23 12:28] LABS: TROPONIN I 1.15 NG/ML (0.02-0.05)
[2017-07-23] MEDS ORDERED: ALPRAZolam 0.5 MG TAB PO PRN (12:45)
[2017-07-23] MEDS ORDERED: buPROPion HCL 75 MG TAB PO SCH (12:45)
[2017-07-23] MEDS: ISOSORBIDE DINITRATE 10 MG TAB PO SCH ×2 (13:00→17:56)
[2017-07-23] MEDS: FAMOTIDINE 20 MG TAB PO SCH ×2 (14:53→22:09)
[2017-07-23] MEDS: METOPROLOL TARTRATE 50 MG TAB PO SCH ×2 (14:53→22:09)
[2017-07-23] MEDS: guaiFENesin E.R. 600 MG TAB PO SCH ×2 (14:53→22:08)
[2017-07-23] MEDS: LISINOPRIL 20 MG TAB PO SCH (14:54)
[2017-07-23] MEDS: CHOLECALCIFEROL (VIT D3) 1000 UNIT TAB PO SCH (14:55)
[2017-07-23] MEDS: HEPARIN SODIUM - SQ 10,000 UNITS/ML VIAL SQ SCH ×2 (14:56→22:07)
[2017-07-23 18:26] LABS: TROPONIN I 2.46 NG/ML (0.02-0.05)
--- NOTE | 2017-07-23 19:16 | MB ---
cc: ANURAG CASTELLON M.D. DATE OF CONSULTATION: 07/23/2017. REASON FOR CONSULTATION: Shortness of breath. HISTORY OF PRESENT ILLNESS: Mr. Siu is a 71-year-old gentleman with history of coronary artery disease, coronary bypass grafting, previous PTCA plus stent followed by the [facility]. He was supposed to have an appointment with [facility] supposedly for a valve leaking. He was waiting for the appointment for a couple of months but missed the appointment on Tuesday. He began to have shortness of breath. He was brought to the emergency room. On hospitalization, troponin was increased. I was consulted for further evaluation and management. The chart was reviewed. The patient was evaluated. ALLERGIES: None. SOCIAL HISTORY: The patient still smokes a pack of cigarettes a day. FAMILY HISTORY: Noncontributory to his current medical condition. CURRENT MEDICATIONS: Currently he is on: 1. Zithromax. 2. Ceftriaxone. 3. [place]. 4. Xanax. 5. Lipitor. 6. Wellbutrin. 7. Vitamin D. 8. Plavix. 9. Depakote ER. 10. DuoNeb. 11. Heparin. 12. Magnesium. 13. Metoprolol. 14. Flomax. REVIEW OF SYSTEMS: He refers some shortness of breath but no chest pain or chest discomfort. PHYSICAL EXAMINATION: GENERAL: Alert, fully oriented. VITAL SIGNS: His blood pressure is 120/60, pulse 72, respiratory rate 18. LUNGS: Ventilated. CARDIOVASCULAR: S1-S2 regular. No gallop. ABDOMEN: Abdomen soft, no mass. No bruits. EXTREMITIES: No edema. EKGS: Electrocardiogram indicates sinus rhythm, diffuse anterolateral S-T changes. LABORATORY DATA: Creatinine 0.78, potassium 4.0. Troponin increased from 0.23-1.15. INR 1.1. Hemoglobin 11.4, white blood cells 16.8. ASSESSMENT AND RECOMMENDATIONS: Mr. Siu has a history of coronary artery disease and previous PTCA with previous coronary artery bypass grafting. There is an increase in troponin. There is no acute S-T and T wave changes in the electrocardiogram. This is definitely a non-S-T elevation myocardial infarction. There is a story about a known leaking valve. The gentleman is already on Plavix and a beta sravan. I am going to order an echocardiogram to evaluate the valve function and the anatomy. I am going to put a consult for evaluation by Dr. Grove, the disabilities services officer. I discussed the case extensively with him and his felicitas pastor. I agree with the current management. Will monitor him during the hospitalization. MD MILADY Beavers/AISHWARYA /5:53 PM /6:53 PM
[2017-07-23] MEDS: cefTRIAXone INJ 1,000 MG in SODIUM CHLORIDE 0.9% INJ 100 ML IV SCH (20:05)
[2017-07-23] MEDS: AZITHROMYCIN INJ 500 MG in SODIUM CHLOR 0.9% 250 ML INJ 250 ML IV SCH (20:50)
[2017-07-23] MEDS: ATORVASTATIN 80 MG TAB PO SCH (22:08)
[2017-07-23] MEDS: DIVALPROEX SODIUM E.R. 250 MG TAB PO SCH (22:08)
[2017-07-23] MEDS: TAMSULOSIN HCL 0.4 MG CAP PO SCH (22:09)
--- NOTE | 2017-07-23 23:59 | EKG ---
Date Performed: 07/22/2017 Time Performed: 16:48:27 PTAGE: 71 years EKG: Sinus rhythm POSSIBLE LEFT ATRIAL ENLARGEMENT SEPTAL MYOCARDIAL INFARCTION MODERATE T-WAVE ABNORMALITY, CONSIDER LATERAL ISCHEMIA ABNORMAL ECG PREVIOUS TRACING : 07/22/2017 16.42 Compared to prior tracing, lateral ST/T wave changes are ne w DOCTOR: Jose Grove Interpretating Date/Time 07/23/2017 23:57:29
[2017-07-24 00:49] LABS: ALBUMIN 2.7 GM/DL (3.4-5.0); BICARBONATE 24.7 MEQ/L (21.0-32.0); BLOOD UREA NITROGEN 28 MG/DL (7-18); CHLORIDE 110 MEQ/L (98-107); GLUCOSE,RANDOM 106 MG/DL (74-106); SODIUM (NA) 140 MEQ/L (136-145)
[2017-07-24 00:57] LABS: ALKALINE PHOSPHATASE 55 U/L (45-117); ALT (GPT) 15 U/L (12-78); AST (GOT) 16 U/L (15-37); CREATININE 0.79 MG/DL (0.60-1.30); FREE T4 0.83 NG/DL (0.76-1.46); GLOMERULAR FILTRATION RATE 97 ML/MIN (>89); PHOSPHORUS 1.7 MG/DL (2.5-4.9); TOTAL BILIRUBIN ADULT 0.3 MG/DL (0.2-1.0)
[2017-07-24 01:04] LABS: TROPONIN I 2.09 NG/ML (0.02-0.05)
[2017-07-24] MEDS: methylPREDNISolone SOD SUCC 40 MG/1 ML VIAL IV PUSH SCH ×5 (03:59→23:46)
[2017-07-24 04:58] VITALS: BP 109/55; PULSE 64; RESP 18; TEMP 97.8; O2SAT 93
[2017-07-24 08:00] VITALS: PULSE 71
[2017-07-24] MEDS: HEPARIN SODIUM - SQ 10,000 UNITS/ML VIAL SQ SCH (08:10)
[2017-07-24 08:12] VITALS: BP 122/60; PULSE 62; RESP 20; TEMP 98.9; O2SAT 98
[2017-07-24 08:51] LABS: AUTOMATED NEUTROPHIL # 18.1 TH/MM3 (1.8-7.7); BASOPHIL % 0.1 % (0.0-2.0); HEMATOCRIT 33.9 % (39.0-51.0); HEMOGLOBIN 11.2 GM/DL (13.0-17.0); LYMPH % 6.5 % (9.0-44.0); LYMPHOCYTE # 1.3 TH/MM3 (1.0-4.8); MEAN CELL VOLUME 98.3 FL (80.0-100.0); MEAN CORPUSCULAR HEMOGLOBIN 32.6 PG (27.0-34.0); MEAN CORPUSCULAR HGB CONC 33.2 % (32.0-36.0); MEAN PLATELET VOLUME 9.1 FL (7.0-11.0); NEUT % 88.4 % (16.0-70.0); PLATELET COUNT 227 TH/MM3 (150-450); RED BLOOD COUNT 3.44 MIL/MM3 (4.50-5.90); RED CELL DISTRIBUTION WIDTH 13.9 % (11.6-17.2); WHITE BLOOD COUNT 20.5 TH/MM3 (4.0-11.0)
[2017-07-24] MEDS: SODIUM CHLORIDE 0.9% FLUSH 10 ML FLUSH IV FLUSH SCH ×2 (09:00→21:00)
--- NOTE | 2017-07-24 09:50 | HHI.PR ---
Subjective Remarks This is a 71-year-old male with a PMH of HTN, CAD, COPD and Tobacco Abuse who presented to the ER with complaints of cough and wheezing starting earlier today. states pt had episode of "dry heaving" and was concerned he was having a heart attack. No c/o chest pain. SOB is moderate, associated w/ wheezing, intermittent and worse w/ exertion. Reports subjective fever/chills. On arrival, BP 131/72, HR 78, O2 sat 98% on RA, Afebrile. WBC 26.9, bands 8% . Chemistry essentially unremarkable. BUN 22. Troponin negative. INR 1.1. CXR with old granulomatous disease, right lower lung infiltrate. S/p Rocephin/ Zithro, Solu-Medrol in ER. 2-10 STATES HE FEELS BETTER AND WANTS TO GO HOME EXPLAINED TO HIM THAT HE NEEDS TO FOLLOW UP WITH THE ID M[facility] AND NEEDS TO FILL HIS RX BEFORE GOING TO THE ID CLINIC SINCE CLOSED OVER THE WEEKEND HAS POSITIVE TROPONIN- SUSPECT DEMAND ISCHEMIA WILL CONSULT CARDIOLOGY CANNOT BE DCED TO HOME YET 2-11 SEEN BY CARDIOLOGY NSTEMI INTERVENTIONAL CARDIOLOGY CONSULTED HOME MEDS RESUMED DW RN AND PT WAS MADE FULL ADMIT YESTERDAY TROPONIN PEAK AT 2.46 LOOKS LIKE TRENDING DOWN NOW STATES HE IS BREATHING BETTER- STATES HE CHRONICALLY WHEEZES Patient is scheduled to go for cardiac catheterization with Dr. Pinto tomorrow Objective Vitals Vital Signs Date Time Temp Pulse Resp B/P (MAP) Pulse Ox O2 Delivery O2 Flow Rate FiO2 07/24/17 08:12 98.9 62 20 122/60 (80) 98 07/24/17 04:58 97.8 64 18 109/55 (73) 93 07/23/17 22:58 98.0 70 18 110/56 (74) 95 07/23/17 19:43 98.1 74 18 118/57 (77) 97 07/23/17 15:33 98.2 72 20 120/60 (80) 97 07/23/17 12:06 98.8 73 18 120/60 (80) 98 I/O 07/23/17 07/23/17 07/23/17 07/24/17 07/24/17 07/24/17 07:00 15:00 23:00 07:00 15:00 23:00 Intake Total 2250 ml Balance 2250 ml Intake IV Total 2250 ml # Voids 3 2 # Bowel Movements 0 Result Diagram: 07/24/17 0728 07/23/17 8092 Other Results Laboratory Tests Test 07/22/17 17:22 07/22/17 17:35 07/23/17 00:43 07/23/17 00:48 White Blood Count 26.9 TH/MM3 Red Blood Count 4.19 MIL/MM3 Hemoglobin 13.7 GM/DL Hematocrit 41.1 % Mean Corpuscular Volume 98.0 FL Mean Corpuscular Hemoglobin 32.7 PG Mean Corpuscular Hemoglobin Concent 33.4 % Red Cell Distribution Width 13.7 % Platelet Count 239 TH/MM3 Mean Platelet Volume 8.7 FL Neutrophils (%) (Auto) 75.5 % Lymphocytes (%) (Auto) 13.0 % Monocytes (%) (Auto) 11.2 % Eosinophils (%) (Auto) 0.1 % Basophils (%) (Auto) 0.2 % Neutrophils # (Auto) 20.3 TH/MM3 Lymphocytes # (Auto) 3.5 TH/MM3 Monocytes # (Auto) 3.0 TH/MM3 Eosinophils # (Auto) 0.0 TH/MM3 Basophils # (Auto) 0.1 TH/MM3 CBC Comment AUTO DIFF Differential Total Cells Counted 100 Neutrophils % (Manual) 71 % Band Neutrophils % 8 % Lymphocytes % 9 % Monocytes % 12 % Neutrophils # (Manual) 21.3 TH/MM3 Differential Comment FINAL DIFF MANUAL Platelet Estimate NORMAL Platelet Morphology Comment NORMAL Blood Urea Nitrogen 22 MG/DL 24 MG/DL Creatinine 1.17 MG/DL 1.19 MG/DL Random Glucose 92 MG/DL 280 MG/DL Calcium Level 9.2 MG/DL 8.1 MG/DL Sodium Level 137 MEQ/L 138 MEQ/L Potassium Level 4.5 MEQ/L 3.8 MEQ/L Chloride Level 101 MEQ/L 104 MEQ/L Carbon Dioxide Level 28.2 MEQ/L 23.5 MEQ/L Anion Gap 8 MEQ/L 11 MEQ/L Estimat Glomerular Filtration Rate 61 ML/MIN 60 ML/MIN Total Creatine Kinase 48 U/L 42 U/L Troponin I LESS THAN 0.02 NG/ML LESS THAN 0.02 NG/ML Prothrombin Time 10.7 SEC Prothromb Time International Ratio 1.1 RATIO Activated Partial Thromboplast Time 24.9 SEC Total Protein 6.6 GM/DL Albumin 3.0 GM/DL Alkaline Phosphatase 66 U/L Aspartate Amino Transf (AST/SGOT) 10 U/L Alanine Aminotransferase (ALT/SGPT) 17 U/L Total Bilirubin 0.4 MG/DL Lactic Acid Level 4.4 mmol/L Test 07/23/17 05:08 07/23/17 07:50 07/23/17 11:30 07/23/17 17:30 Lactic Acid Level 3.3 mmol/L White Blood Count 16.8 TH/MM3 Red Blood Count 3.43 MIL/MM3 Hemoglobin 11.4 GM/DL Hematocrit 33.3 % Mean Corpuscular Volume 97.1 FL Mean Corpuscular Hemoglobin 33.2 PG Mean Corpuscular Hemoglobin Concent 34.2 % Red Cell Distribution Width 14.0 % Platelet Count 222 TH/MM3 Mean Platelet Volume 8.6 FL Neutrophils (%) (Auto) 90.8 % Lymphocytes (%) (Auto) 6.1 % Monocytes (%) (Auto) 2.9 % Eosinophils (%) (Auto) 0.0 % Basophils (%) (Auto) 0.2 % Neutrophils # (Auto) 15.2 TH/MM3 Lymphocytes # (Auto) 1.0 TH/MM3 Monocytes # (Auto) 0.5 TH/MM3 Eosinophils # (Auto) 0.0 TH/MM3 Basophils # (Auto) 0.0 TH/MM3 CBC Comment DIFF FINAL Differential Comment Blood Urea Nitrogen 23 MG/DL Creatinine 0.78 MG/DL Random Glucose 148 MG/DL Total Protein 6.0 GM/DL Albumin 2.7 GM/DL Calcium Level 7.7 MG/DL Alkaline Phosphatase 60 U/L Aspartate Amino Transf (AST/SGOT) 10 U/L Alanine Aminotransferase (ALT/SGPT) 14 U/L Total Bilirubin 0.3 MG/DL Sodium Level 141 MEQ/L Potassium Level 4.0 MEQ/L Chloride Level 110 MEQ/L Carbon Dioxide Level 23.0 MEQ/L Anion Gap 8 MEQ/L Estimat Glomerular Filtration Rate 98 ML/MIN Troponin I 0.23 NG/ML 1.15 NG/ML 2.46 NG/ML Total Creatine Kinase 82 U/L 112 U/L Creatine Kinase MB 7.6 NG/ML Test 07/23/17 23:52 07/24/17 07:28 Blood Urea Nitrogen 28 MG/DL Creatinine 0.79 MG/DL Random Glucose 106 MG/DL Total Protein 6.0 GM/DL Albumin 2.7 GM/DL Calcium Level 8.0 MG/DL Phosphorus Level 1.7 MG/DL Magnesium Level 2.0 MG/DL Alkaline Phosphatase 55 U/L Aspartate Amino Transf (AST/SGOT) 16 U/L Alanine Aminotransferase (ALT/SGPT) 15 U/L Total Bilirubin 0.3 MG/DL Sodium Level 140 MEQ/L Potassium Level 4.5 MEQ/L Chloride Level 110 MEQ/L Carbon Dioxide Level 24.7 MEQ/L Anion Gap 5 MEQ/L Estimat Glomerular Filtration Rate 97 ML/MIN Total Creatine Kinase 117 U/L Creatine Kinase MB 6.4 NG/ML Troponin I 2.09 NG/ML Free Thyroxine 0.83 NG/DL Thyroid Stimulating Hormone 3rd Gen 0.326 uIU/ML White Blood Count 20.5 TH/MM3 Red Blood Count 3.44 MIL/MM3 Hemoglobin 11.2 GM/DL Hematocrit 33.9 % Mean Corpuscular Volume 98.3 FL Mean Corpuscular Hemoglobin 32.6 PG Mean Corpuscular Hemoglobin Concent 33.2 % Red Cell Distribution Width 13.9 % Platelet Count 227 TH/MM3 Mean Platelet Volume 9.1 FL Neutrophils (%) (Auto) 88.4 % Lymphocytes (%) (Auto) 6.5 % Monocytes (%) (Auto) 5.0 % Eosinophils (%) (Auto) 0.0 % Basophils (%) (Auto) 0.1 % Neutrophils # (Auto) 18.1 TH/MM3 Lymphocytes # (Auto) 1.3 TH/MM3 Monocytes # (Auto) 1.0 TH/MM3 Eosinophils # (Auto) 0.0 TH/MM3 Basophils # (Auto) 0.0 TH/MM3 CBC Comment DIFF FINAL Differential Comment Imaging Last Impressions Chest X-Ray 07/22/17 6183 Signed Impressions: Service Date/Time: Saturday, July 22, 2017 17:28 - CONCLUSION: 1. Old granulomatous disease. 2. Airspace process laterally in the right lower lung field may represent additional areas of partially calcified granulomatous disease although early infiltrate cannot be excluded. I have no priors to establish chronicity. Noncontrasted CT scan of the chest be performed for further characterization if clinically warranted. Godwin Toro MD Objective Remarks GENERAL: Awake alert oriented 3 talkative and cooperative does not appear to be in any distress SKIN: Warm and dry. HEAD: Atraumatic. Normocephalic. EYES: Pupils equal and round. No scleral icterus. No injection or drainage. Extractor muscles intact ENT: No nasal bleeding or discharge. Mucous membranes pink and moist. Tongue is midline NECK: Trachea midline. No JVD. Supple CARDIOVASCULAR: Regular rate and rhythm. S1 and S2 no S3 or S4 RESPIRATORY: No accessory muscle use. Breath sounds equal bilaterally. Coarse breath sounds bilaterally with some wheezes GASTROINTESTINAL: Abdomen soft, non-tender, nondistended. Hepatic and splenic margins not palpable. MUSCULOSKELETAL: Extremities without clubbing, cyanosis, or edema. No obvious deformities. NEUROLOGICAL: Awake and alert. No obvious cranial nerve deficits. Motor grossly within normal limits. Five out of 5 muscle strength in the arms and legs. Normal speech. PSYCHIATRIC: Appropriate mood and affect; insight and judgment normal. Procedures NONE Medications and IVs Current Medications Sodium Chloride (NS Flush) 2 ml UNSCH PRN IVF FLUSH AFTER USING IV ACCESS; Start 07/22/17 at 17:15; Stop 07/23/17 at 01:56; Status DC Methylprednisolone Sodium Succinate (SoluMEDROL INJ) 125 mg ONCE ONCE IV PUSH Last administered on 07/22/17at 18:10; Start 07/22/17 at 17:45; Stop 07/22/17 at 17: 46; Status DC Albuterol/ Ipratropium (Duoneb Neb) 1 ampule Q15M INH Last administered on at 18:34; Start 07/22/17 at 17:45; Stop 07/22/17 at 18:01; Status DC Ceftriaxone Sodium 1000 mg/ Sodium Chloride 100 ml @ 200 mls/hr ONCE ONCE IV Last administered on 07/22/17 19:53; Start 07/22/17 at 18:30; Stop 07/22/17 at 18: 59; Status DC Azithromycin 500 mg/Sodium Chloride 250 ml @ 250 mls/hr ONCE ONCE IV Last administered on 07/22/17at 21:39; Start 07/22/17 at 18:30; Stop 07/22/17 at 19:29; Status DC Methylprednisolone Sodium Succinate (SoluMEDROL INJ) 40 mg Q6HR IV PUSH Last administered on 07/24/17at 08:10; Start 07/23/17 at 00:00 Albuterol/ Ipratropium (Duoneb Neb) 1 ampule Q4HR NEB PRN NEB SOB/WHEEZING; Start 07/22/17 at 19:15 Budesonide/ Formoterol Fumarate (Symbicort 160-4.5 Mcg Inh) 2 puff Q12HR INH Last administered on 07/23/17at 20:12; Start 07/22/17 at 21:00 Ceftriaxone Sodium 1000 mg/ Sodium Chloride 100 ml @ 200 mls/hr Q24H IV Last administered on 07/23/17at 20:05; Start 07/23/17 at 20:00 Azithromycin 500 mg/Sodium Chloride 250 ml @ 250 mls/hr Q24H IV Last administered on 07/23/17at 20:50; Start 07/23/17 at 20:00 Sodium Chloride (NS Flush) 2 ml UNSCH PRN IV FLUSH FLUSH AFTER USING IV ACCESS ; Start 07/22/17 at 19:15 Sodium Chloride (NS Flush) 2 ml BID IV FLUSH Last administered on 07/23/17at 22: 07; Start 07/22/17 at 21:00 Ondansetron HCl (Zofran Inj) 4 mg Q6H PRN IVP NAUSEA OR VOMITING; Start at 19:15 Acetaminophen (Tylenol) 650 mg Q6H PRN PO FEVER/PAIN SCALE 1 TO 2; Start at 19:15 Acetaminophen/ Hydrocodone Bitart ([place] 5-325 Mg) 1 tab Q4H PRN PO PAIN SCALE 3 TO 5; Start 07/22/17 at 19:15; Stop 07/23/17 at 14:44; Status DC Acetaminophen/ Hydrocodone Bitart ([place] 10-325 Mg) 1 tab Q4H PRN PO PAIN SCALE 6 TO 10; Start 07/22/17 at 19:15 Senna/Docusate Sodium (Kaylene-Colace) 1 tab BID PO Last administered on at 09:37; Start 07/22/17 at 21:00 Magnesium Hydroxide (Milk Of Magnesia Liq) 30 ml Q12H PRN PO Mild constipation ; Start 07/22/17 at 19:15 Sennosides (Senokot) 17.2 mg Q12H PRN PO Moderate constipation; Start 07/22/17 at 19:15 Bisacodyl (Dulcolax Supp) 10 mg DAILY PRN RECTAL SEVERE CONSITIPATION; Start at 19:15 Lactulose (Lactulose Liq) 30 ml DAILY PRN PO SEVERE CONSITIPATION; Start at 19:15 Aspirin (Aspirin Chew) 81 mg DAILY CHEW Last administered on 07/23/17at 09:38; Start 07/23/17 at 09:00 Bupropion HCl (Wellbutrin Sr 12 Hr) 100 mg Q12HR PO Last administered on at 22:08; Start 07/22/17 at 21:00 Clopidogrel Bisulfate (Plavix) 75 mg DAILY PO Last administered on 07/23/17 09 :38; Start 07/23/17 at 09:00 Isosorbide Mononitrate (Ismo) 10 mg BID PO Last administered on 07/23/17 09:37 ; Start 07/22/17 at 21:00; Stop 07/23/17 at 14:44; Status DC Metoprolol Succinate (Toprol Xl) 25 mg DAILY PO Last administered on 07/23/17at 09:37; Start 07/23/17 at 09:00; Stop 07/23/17 at 12:48; Status DC Sodium Chloride 1,000 ml @ 999 mls/hr BOLUS ONCE IV Last administered on 07/23at 02:16; Start 07/23/17 at 02:00; Stop 07/23/17 at 03:00; Status DC Sodium Chloride 1,000 ml @ 999 mls/hr BOLUS ONCE IV Last administered on 07/23at 03:27; Start 07/23/17 at 02:00; Stop 07/23/17 at 03:00; Status DC Sodium Chloride 250 ml @ 250 mls/hr BOLUS ONCE IV Last administered on at 04:24; Start 07/23/17 at 02:00; Stop 07/23/17 at 02:59; Status DC Heparin Sodium (Porcine) (Heparin Inj) 5,000 units Q8HR SQ Last administered on 07/24/17at 08:10; Start 07/23/17 at 14:00 Famotidine (Pepcid) 20 mg BID PO Last administered on 07/23/17at 22:09; Start at 11:00 Guaifenesin (Mucinex Er) 600 mg BID PO Last administered on 07/23/17 22:08; Start 07/23/17 at 12:45 Alprazolam (Xanax) 0.5 mg Q8H PRN PO ANXIETY; Start 07/23/17 at 12:45 Atorvastatin Calcium (Lipitor) 80 mg HS PO Last administered on 07/23/17at 22:08 ; Start 07/23/17 at 21:00 Bupropion HCl (Wellbutrin) 75 mg DAILY PO ; Start 07/23/17 at 12:45; Stop at 14:44; Status DC Cholecalciferol (Vitamin D3) 1,000 units DAILY PO Last administered on at 14:55; Start 07/23/17 at 12:45 Divalproex Sodium (Depakote Er) 250 mg HS PO Last administered on 07/23/17at 22: 08; Start 07/23/17 at 21:00 Isosorbide Dinitrate (Isordil) 10 mg TID PO Last administered on 07/23/17at 17: 56; Start 07/23/17 at 13:00 Lisinopril (Prinivil) 20 mg DAILY PO Last administered on 07/23/17at 14:54; Start 07/23/17 at 12:45 Metoprolol Tartrate (Lopressor) 50 mg BID PO Last administered on 07/23/17 22: 09; Start 07/23/17 at 12:45 Tamsulosin HCl (Flomax) 0.4 mg HS PO Last administered on 07/23/17 22:09; Start 07/23/17 at 21:00 A/P Problem List: (1) COPD (chronic obstructive pulmonary disease) ICD Code: J44.9 - Chronic obstructive pulmonary disease, unspecified (2) PNA (pneumonia) ICD Code: J18.9 - Pneumonia, unspecified organism (3) Bandemia ICD Code: D72.825 - Bandemia (4) Tobacco abuse ICD Code: Z72.0 - Tobacco use (5) NSTEMI (non-ST elevated myocardial infarction) ICD Code: I21.4 - Non-ST elevation (NSTEMI) myocardial infarction (6) COPD exacerbation ICD Code: J44.1 - Chronic obstructive pulmonary disease with (acute) exacerbation Status: Acute (7) Pneumonia ICD Code: J18.9 - Pneumonia, unspecified organism Status: Acute (8) Leukocytosis ICD Code: D72.829 - Elevated white blood cell count, unspecified Status: Acute Assessment and Plan A/P: 1. COPD: Chronic Respiratory Failure w/ Acute Exacerbation. Moderate-Severe. +persistent wheezing despite treatment. Solu-Medrol, DuoNeb, Symbicort, Mucinex. Monitor O2. 2. PNA: CXR w/ old granulomatous disease, likely RLL infiltrate, images reviewed by me. S/p Rocephin/Zithro in ER, continue w/ IV Abx, DuoNeb prn. Check Sputum Cultures. 3. Bandemia: WBC 26.9 w/ bandemia 8%, reports h/o chronically elevated WBC, s/p eval at ID, BM biopsy negative per . Bandemia likely secondary to acute PNA, will repeat labs in am. 4. Tobacco Abuse: Pt counselled. NicoDerm prn if needed. Positive troponin will consult cardiology get an echocardiogram suspect the positive troponin is due to demand ischemia due to the breathing but we'll get cardiac evaluation NSTEMI TROPONIN TOPPED OUT AT 2.46 Patient has history of coronary artery disease and history of stents going back to maybe 2001-states he has been christianity taking his aspirin and Plavix Home meds were restarted including aspirin and Plavix and beta sravan as well as Imdur Patient is scheduled to go for cardiac catheterization with Dr. EDUARDO Grove tomorrow Cardiology wants interventional cardiology to evaluate him Patient was supposed to go to the ID at [facility] for cardiac workup this coming Tuesday 5. DVT Prophylaxis: SCD/Teds. 6. Social work for d/c planning as needed. 7. Case discussed w/ ER physician at length, labs/imaging/records reviewed by me. Discharge Planning DC on hold until cleared by cardiology since [facility] Curt Briones DO Jul 24, 2017 09:50
[2017-07-24] MEDS: buPROPion HCL 100 MG SUSTAINED RELEASE TAB PO SCH ×2 (09:55→23:45)
[2017-07-24] MEDS: guaiFENesin E.R. 600 MG TAB PO SCH ×2 (09:55→23:45)
[2017-07-24] MEDS: FAMOTIDINE 20 MG TAB PO SCH ×2 (09:55→23:46)
[2017-07-24] MEDS: DOCUSATE SODIUM 50 MG/SENNA 8.6 MG TAB PO SCH ×2 (09:56→21:00)
[2017-07-24] MEDS: LISINOPRIL 20 MG TAB PO SCH (09:56)
[2017-07-24] MEDS: CHOLECALCIFEROL (VIT D3) 1000 UNIT TAB PO SCH (09:57)
[2017-07-24] MEDS: ISOSORBIDE DINITRATE 10 MG TAB PO SCH ×3 (09:57→19:00)
[2017-07-24] MEDS: ASPIRIN 81 MG CHEW TAB CHEW SCH (09:57)
[2017-07-24] MEDS: CLOPIDOGREL 75 MG TAB PO SCH (09:57)
[2017-07-24] MEDS: METOPROLOL TARTRATE 50 MG TAB PO SCH (09:57)
[2017-07-24] MEDS: BUDESONIDE-FORMOTEROL 160/4.5 MCG INHALER INH SCH ×2 (09:58→21:27)
[2017-07-24] MEDS ORDERED: HEPARIN-D5W 25,000 U/250 ML 250 ML IV PRN (11:45)
[2017-07-24 11:57] VITALS: BP 120/68; PULSE 60; RESP 20; TEMP 97.9; O2SAT 96
--- NOTE | 2017-07-24 12:15 | MB ---
cc: JOSE WINTERS DO DATE OF CONSULTATION: 07/24/2017. REASON FOR CONSULTATION: NSTEMI. HISTORY OF PRESENT ILLNESS: Austin Siu is a pleasant 71-year-old male who presented to the [facility] Emergency Room on July 22, 2017 with a complaint of cough and wheezing. The patient started having episodes of dry heaving and the was concerned as this was a symptom when he had a heart attack a number of years ago. He denies current chest pain. He does have shortness of breath with some mild wheezing. Labs were checked and he was found to have an elevated troponin. I was asked to see the patient for further considerations of possible cardiac catheterization. The patient states that he was to [place] by a ware server for consideration of hernia surgery. He was supposed to see them on the but at that time he was in the emergency room. He does have a hernia on the right side for which he was planning to have elective surgery. PAST MEDICAL HISTORY: 1. Coronary artery disease. 2. Hypertension. 3. COPD. 4. Tobacco abuse. 5. History of CVA. PAST SURGICAL HISTORY: 1. CABG x2 (2001 at [facility] with unknown coronary anatomy). 2. Previous cardiac catheterizations with percutaneous coronary intervention to unknown vessels (around 2000). ALLERGIES: NO KNOWN DRUG ALLERGIES. MEDICATIONS: 1. Flomax 0.4 milligrams every night. 2. Plavix 75 milligrams daily. 3. Lipitor 80 milligrams every night. 4. Isosorbide dinitrate 10 milligrams three times a day. 5. Metoprolol tartrate 50 milligrams twice a day. 6. Lisinopril 20 milligrams daily. 7. Aspirin 81 milligrams daily. 8. Divalproex ER 250 milligrams every night. 9. Buspirone 75 milligrams daily. 10. Xanax 0.5 milligrams every eight hours as needed for anxiety. FAMILY HISTORY: Denies premature coronary artery disease or sudden cardiac within the family. SOCIAL HISTORY: The patient denies alcohol or drug abuse. He does smoke one pack of cigarettes a day. REVIEW OF SYSTEMS Fourteen systems were reviewed including osteopathic with pertinent positives and negatives as above; otherwise negative. PHYSICAL EXAMINATION: VITAL SIGNS: Temperature 98.9, heart rate 62, blood pressure 122/60, respirations 20, pulse ox 98% on room air. GENERAL: In general, the patient appears well in no acute distress, alert awake and oriented x3. Extraocular muscles intact. Mucous membranes moist. NECK: The neck is supple. No JVD at 45 degrees. No carotid bruits heard bilaterally. Carotid upstroke is brisk in nature. HEART: Heart is regular rate and rhythm. Positive first and second heart sounds with a 1/6 holosystolic murmur noted at the apex. LUNGS: Lungs have decreased breath sounds bilaterally but no overt wheezes, rales or rhonchi. ABDOMEN: The abdomen is soft, nontender and nondistended. No organomegaly noted. EXTREMITIES: No cyanosis, clubbing or edema. Femoral pulses intact bilaterally. NEUROLOGIC: Neurologically no focal deficits. SKIN: Warm, dry and intact. OSTEOPATHIC: Osteopathically, no kyphoscoliosis, lordosis or paraspinal tender points. LABORATORY FINDINGS: Hemoglobin 11.2, hematocrit 33.9, platelets 227,000. Potassium 4.5, BUN 28, creatinine 0.79. Troponin 2.46. EKGS: Electrocardiogram (July 22/2018 at 1648): Sinus rhythm, left atrial enlargement, old septal myocardial infarction, S-T-T wave changes laterally possibly due to ischemia. IMPRESSION: 1. NSTEMI. 2. Coronary artery disease with a history of coronary artery bypass grafting as above. 3. Pneumonia. 4. Leukocytosis most likely due to recent steroids. 5. Tobacco abuse. 6. Hypertension. 7. Hyperlipidemia. 8. History of CVA. RECOMMENDATIONS: 1. Mr. Martinez presented with NSTEMI, and because of this he will be placed on a heparin drip with the plan for cardiac catheterization in the morning. 2. He will be n.p.o. after midnight. 3. We discussed his need for hernia surgery and he states that right now at that it is elective and that he has no strangulation of his hernia or any concerning symptoms and so he would prefer drug-eluting stents were used as he has had problems with his previous stenting which were most likely bare-metal stents. 4. We will check a 2-D echocardiogram to look at his overall left ventricular function, cardiac structure and possible valvulopathies. 5. Discussed with the patient for greater than 3 minutes about tobacco abuse, and he states that he has not smoked in four days since being in the hospital and he is willing to attempt to quit. 6. Further recommendations will be made based on the hospital course. Thank you for allowing me to see Austin Siu. If there are any questions, please do not hesitate to call. Jose Winters DO VGP/JCC /11:33 AM /11:59 AM
[2017-07-24 12:59] LABS: HEMOGLOBIN A1C 6.1 % (4.3-6.0)
[2017-07-24 16:18] VITALS: BP 120/68; PULSE 60; RESP 20; TEMP 97.9; O2SAT 96
[2017-07-24 16:58] LABS: MEAN CORPUSCULAR HEMOGLOBIN 32.6 PG (27.0-34.0); MEAN CORPUSCULAR HGB CONC 33.2 % (32.0-36.0); MEAN PLATELET VOLUME 8.9 FL (7.0-11.0); PLATELET COUNT 222 TH/MM3 (150-450); RED BLOOD COUNT 3.37 MIL/MM3 (4.50-5.90); RED CELL DISTRIBUTION WIDTH 14.4 % (11.6-17.2); WHITE BLOOD COUNT 17.6 TH/MM3 (4.0-11.0)
[2017-07-24 17:18] LABS: PROTHROMBIN TIME - PATIENT 10.6 SEC (9.8-11.6)
[2017-07-24] MEDS ORDERED: HEPARIN SODIUM - IV 10,000 UNITS/10 ML VIAL IV PUSH PRN ×2 (17:45)
--- NOTE | 2017-07-24 18:15 | ECHRPT ---
Indication: SOB CONCLUSIONS The left ventricular systolic function is moderately reduced with an estimated ejection fraction in the range of 40-45%. Moderately dilated left ventricle. There is apical anterior wall hypokinesis. [id number] mitral valve regurgitation. There is trace tricuspid valve regurgitation. BP: 109 / 55 HR: 73 Rhythm: MEASUREMENTS (Male / Female) Normal Values Technical Quality:Good 2D ECHO LV Diastolic Diameter PLAX 5.8 cm 4.2 - 5.9 / 3.9 - 5.3 cm LV Systolic Diameter PLAX 4.9 cm IVS Diastolic Thickness 0.8 cm 0.6 - 1.0 / 0.6 - 0.9 cm LVPW Diastolic Thickness 0.8 cm 0.6 - 1.0 / 0.6 - 0.9 cm LV Relative Wall Thickness 0.3 RV Internal Dim ED PLAX 2.4 cm LA Systolic Diameter LX 4.4 cm 3.0 - 4.0 / 2.7 - 3.8 cm M-MODE Aortic Root Diameter MM 3.2 cm AV Cusp Separation MM 1.7 cm DOPPLER Mitral E Point Velocity 97.5 cm/s Mitral A Point Velocity 76.5 cm/s Mitral E to A Ratio 1.3 TR Peak Velocity 195.3 cm/s TR Peak Gradient 15.3 mmHg Right Atrial Pressure 5.0 mmHg Pulmonary Artery Systolic Pressu 20.3 mmHg Right Ventricular Systolic Press 20.3 mmHg FINDINGS LEFT VENTRICLE Moderately dilated left ventricle. Wall thickness is normal. The left ventricular systolic function is moderately reduced with an estimated ejection fraction in the range of 40-45%. There is apical anterior wall hypokinesis RIGHT VENTRICLE Normal right ventricular size and systolic function. LEFT ATRIUM The left atrial size is mildly dilated. RIGHT ATRIUM The right atrial size is normal. ATRIAL SEPTUM Normal atrial septal thickness. AORTA The aortic root and proximal ascending aorta are normal in size on limited imaging. MITRAL VALVE Structurally normal mitral valve. No mitral valve stenosis. [id number] mitral valve regurgitation. AORTIC VALVE Trileaflet aortic valve. No aortic valve stenosis or regurgitation. TRICUSPID VALVE Structurally normal tricuspid valve. There is trace tricuspid valve regurgitation. No tricuspid valve stenosis. PULMONARY VALVE No pulmonary valve regurgitation or stenosis. VESSELS The inferior vena cava is normal in size. PERICARDIUM No pericardial effusion. Jose Grove DO (Electronically Signed) Final Date:24 July 2017 18:14
[2017-07-24] MEDS: cefTRIAXone INJ 1,000 MG in SODIUM CHLORIDE 0.9% INJ 100 ML IV SCH (20:31)
[2017-07-24] MEDS: AZITHROMYCIN INJ 500 MG in SODIUM CHLOR 0.9% 250 ML INJ 250 ML IV SCH (21:27)
[2017-07-24] MEDS: DIVALPROEX SODIUM E.R. 250 MG TAB PO SCH (23:45)
[2017-07-24] MEDS: ATORVASTATIN 80 MG TAB PO SCH (23:46)
[2017-07-25] MEDS: TAMSULOSIN HCL 0.4 MG CAP PO SCH ×2 (00:08→22:23)
[2017-07-25] MEDS: METOPROLOL TARTRATE 50 MG TAB PO SCH ×3 (00:08→22:22)
[2017-07-25 04:11] VITALS: BP 124/64; PULSE 58; RESP 18; TEMP 97.8; O2SAT 94
[2017-07-25 05:38] LABS: AUTOMATED NEUTROPHIL # 12.9 TH/MM3 (1.8-7.7); BASOPHIL % 0.1 % (0.0-2.0); HEMOGLOBIN 11.1 GM/DL (13.0-17.0); LYMPH % 8.5 % (9.0-44.0); LYMPHOCYTE # 1.3 TH/MM3 (1.0-4.8); MEAN CELL VOLUME 100.4 FL (80.0-100.0); MEAN CORPUSCULAR HEMOGLOBIN 35.9 PG (27.0-34.0); MEAN CORPUSCULAR HGB CONC 35.8 % (32.0-36.0); MEAN PLATELET VOLUME 8.5 FL (7.0-11.0); MONO % 4.7 % (0.0-8.0); MONOCYTE # 0.7 TH/MM3 (0-0.9); NEUT % 86.7 % (16.0-70.0); PLATELET COUNT 233 TH/MM3 (150-450); RED BLOOD COUNT 3.09 MIL/MM3 (4.50-5.90); WHITE BLOOD COUNT 14.8 TH/MM3 (4.0-11.0)
[2017-07-25 06:03] LABS: ALBUMIN 2.5 GM/DL (3.4-5.0); AST (GOT) 8 U/L (15-37); BLOOD UREA NITROGEN 31 MG/DL (7-18); CALCIUM 8.2 MG/DL (8.5-10.1); CHLORIDE 110 MEQ/L (98-107); CREATININE 0.76 MG/DL (0.60-1.30); GLOMERULAR FILTRATION RATE 101 ML/MIN (>89); GLUCOSE,RANDOM 119 MG/DL (74-106); MAGNESIUM 2.2 MG/DL (1.5-2.5); SODIUM (NA) 142 MEQ/L (136-145)
[2017-07-25 06:04] LABS: ALT (GPT) 14 U/L (12-78)
[2017-07-25 06:10] LABS: ALKALINE PHOSPHATASE 55 U/L (45-117); PHOSPHORUS 2.8 MG/DL (2.5-4.9); TOTAL BILIRUBIN ADULT 0.4 MG/DL (0.2-1.0); TOTAL PROTEIN 5.9 GM/DL (6.4-8.2)
[2017-07-25] MEDS: methylPREDNISolone SOD SUCC 40 MG/1 ML VIAL IV PUSH SCH ×4 (07:49→22:31)
[2017-07-25 08:00] VITALS: BP 140/65; PULSE 61; RESP 19; TEMP 98.1; O2SAT 94
[2017-07-25 08:20] VITALS: PULSE 60
[2017-07-25] MEDS: guaiFENesin E.R. 600 MG TAB PO SCH ×2 (08:29→22:22)
[2017-07-25] MEDS: BUDESONIDE-FORMOTEROL 160/4.5 MCG INHALER INH SCH ×2 (08:29→22:24)
[2017-07-25] MEDS: CHOLECALCIFEROL (VIT D3) 1000 UNIT TAB PO SCH (08:29)
[2017-07-25] MEDS: ISOSORBIDE DINITRATE 10 MG TAB PO SCH ×3 (08:29→18:46)
[2017-07-25] MEDS: ASPIRIN 81 MG CHEW TAB CHEW SCH (08:30)
[2017-07-25] MEDS: FAMOTIDINE 20 MG TAB PO SCH ×2 (08:30→22:22)
[2017-07-25] MEDS: buPROPion HCL 100 MG SUSTAINED RELEASE TAB PO SCH ×2 (08:30→22:30)
[2017-07-25] MEDS: DOCUSATE SODIUM 50 MG/SENNA 8.6 MG TAB PO SCH ×2 (08:30→22:22)
[2017-07-25] MEDS: SODIUM CHLORIDE 0.9% FLUSH 10 ML FLUSH IV FLUSH SCH ×2 (08:30→21:00)
[2017-07-25] MEDS: LISINOPRIL 20 MG TAB PO SCH (08:30)
[2017-07-25] MEDS: CLOPIDOGREL 75 MG TAB PO SCH (08:30)
--- NOTE | 2017-07-25 10:18 | HHI.PR ---
Subjective Remarks Patient seen this morning. Denies any chest pain. Reports shortness of breath unchanged today. No nausea or vomiting. Objective Vital Signs Date Time Temp Pulse Resp B/P (MAP) Pulse Ox O2 Delivery O2 Flow Rate FiO2 07/25/17 08:00 98.1 61 19 140/65 (90) 94 07/25/17 04:11 97.8 58 18 124/64 (84) 94 07/24/17 16:18 97.9 60 20 120/68 (85) 96 07/24/17 11:57 97.9 60 20 120/68 (85) 96 I/O 07/24/17 07/24/17 07/24/17 07/25/17 07/25/17 07/25/17 07:00 15:00 23:00 07:00 15:00 23:00 Intake Total 900 ml Output Total 0 ml Balance 900 ml Intake Oral 900 ml Output Stool Total 0 ml # Voids 5 Result Diagram: 07/25/1752007/25/17520 Objective Remarks GENERAL: Patient sitting up in bed. Appears comfortable. SKIN: Warm and dry. HEAD: Normocephalic. EYES: No scleral icterus. No injection or drainage. NECK: Supple, trachea midline. No JVD. CARDIOVASCULAR: Regular rate and rhythm without murmurs, gallops, or rubs. RESPIRATORY: Breath sounds equal bilaterally. No accessory muscle use. GASTROINTESTINAL: Abdomen soft, non-tender, nondistended. MUSCULOSKELETAL: No cyanosis, or edema. BACK: Nontender without obvious deformity. No CVA tenderness. A/P Assessment and Plan // COPD: Chronic Respiratory Failure w/ Acute Exacerbation. Moderate-Severe. +persistent wheezing despite treatment. Solu-Medrol, DuoNeb, Symbicort, Mucinex. Monitor O2. = Continue current treatment. Could be cardiac wheezing. appreciate cv assist // PNA: CXR w/ old granulomatous disease, likely RLL infiltrate, images reviewed by me. S/p Rocephin/Zithro in ER, continue w/ IV Abx, DuoNeb prn. Check Sputum Cultures. = Follow-up sputum cultures. Continue antibiotics. Continue duo nebs. //Leukocytosis with bandemia on admission. WBC 26.9 w/ bandemia 8%, reports h/o chronically elevated WBC, s/p eval at [place], BM biopsy negative per . Bandemia likely secondary to acute PNA, will repeat labs in am. = 2/12. White blood cells 14.8. Improving. Continue to monitor. // Tobacco Abuse: Pt counselled. NicoDerm prn if needed. //NSTEMI = Continue aspirin, Plavix, beta-sravan, Imdur. = Plan for cardiac catheterization today. Appreciate cardiology assistance. //DVT Prophylaxis: SCD/Teds. Discharge Planning followup PT reccs. Regulo Li MD Jul 25, 2017 10:18
[2017-07-25] MEDS ORDERED: MIDAZOLAM HCL 2 MG/2 ML VIAL ONE (10:46)
[2017-07-25] MEDS ORDERED: HEPARIN-NS/PF FLUSH BAG 1,000 ML IV FLUSH ONE (10:46)
[2017-07-25] MEDS ORDERED: NITROGLYCERIN INJ 5 ML ONE (11:38)
[2017-07-25] MEDS ORDERED: HEPARIN SODIUM - IV 10,000 UNITS/10 ML VIAL ONE (11:38)
[2017-07-25] MEDS ORDERED: TICAGRELOR 90 MG TAB PO ONE (12:20)
--- NOTE | 2017-07-25 12:44 | CATHPROC ---
[facility] HIS Report Study Information Study Number Admission Scheduled Start Study Start [id number] Jul 23 2017 12:38PM 07/24/2017 Jul 25 2017 10:42AM [facility] Cardiac Catheterization Admit Source Facility Department Emergency department [facility] - Marine Underwriter Physician and Clinical Staff Initial Jose Mcgovern Dermatology Sales Representative Bhumika Ram RN Dermatology Sales Representativeavery Jackson RN, Nick RecordDeedee Asher,RT(R) (BS) Scrub Fabian Cruz,RT(R) Procedures Performed Procedure Location (Site) Vessel Name Angiogram LV Asc. Aorta (A) Coronary Angiograms LCA Left Coronary Coronary Angiograms RCA Right Coronary Coronary Angiograms PADILLA Graft Left Coronary Coronary Angiograms SVG-OM CIRC Coronary Angiograms Gft. Stump 1 SVG Graft Drug Eluting Inflatio LAD Prox Left Coronary L Heart Cath PTCA LAD Prox Left Coronary Wire insertion Fem Art (right) Femoral Art Equipment Time Pinking Sewing Machine Operator Description Size Mfg Part Number Used/Scraped TRANSDUCER, TRUWAVE [id number] 10:56 BELLO JORDAN * Used W/STOCKCOCK *[id number] CARDIOVASCULAR CATHETER, CORONARY CLASSIC [id number] 11:53 Used SYSTEMS INC. 1.25MM *[id number] CARDIOVASCULAR LUBRICANT, VIPERSLIDE [id number] 11:53 Used SYSTEMS INC. ATHERCTOMY *[id number] CARDIOVASCULAR WIRE, VIPER ADVANCE [id number] 11:48 Used SYSTEMS INC. CORONARY FLP *[id number] INTRODUCER SET, 10:56 [employer]OOK INC. FR 5 [id number] *[id number] Used MICROPUNCTURE, STIFFENED [id number] *[id number] WIRE, HYDROSTEER 150CM [id number] 11:39 DAIG/ST. REY [employer] 150CM Used ANGLED GLIDE *[id number] 10:56 [employer] PACK, CCL CUSTOM * Used *[id number] BALLOON, 2.75 X 15MM [id number] 12:05 MEDTRONIC 15MM Used EUPHORA *[id number] 11:41 MEDTRONIC JL 4.0 DXTERITY CATHETER FR 5 Used *[id number] 10:56 MEDTRONIC JR 4.0 DXTERITY CATHETER FR 5 Used *[id number] 12:10 MEDTRONIC STENT, 3.0 22MM KHANG 3.0 22MM Used *[id number] 11:47 MEDTRONIC/AVE EBU 3.5 Z2 GUIDE CATHETER FR 6 Used *[id number] [id number] 12:09 [employer] 30 JAIME INDEFLATOR Used *[id number] [id number] 10:56 Optisort WIRE, 3MMJ .035 180CM 180CM Used *[id number] 10:56 NAMIC MANIFOLD, 4 PORT * Used *1776005 [id number] 11:32 NAMIC TUBING, HIGH PRESSURE 20" 20" Used *[id number] 10:56 [place]COMED OMNIPAQUE, 350 MG, 150ML 150ML [id number] Used [id number] 10:56 [facility],WARM AIR CCL * Used *[id number] [id number] 10:56 TERUMO MEDICAL SHEATH, FR5 TERUMO (10CM) FR 5 Used *[id number] [id number] 11:40 TERUMO MEDICAL SHEATH, FR6 TERUMO (10CM) FR 6 Used *[id number] Equipment Model, Serial, Lot Number and Expiration Data Description Model Number Serial Number Lot Number Expiration Date CATHETER, CORONARY CLASSIC [id number] 01-10-2019 1.25MM JR 4.0 DXTERITY CATHETER [id number] 03-17-2020 STENT, 3.0 22MM KHANG [id number] 11-06-2018 WIRE, VIPER ADVANCE CORONARY [id number] 09-10-2018 WIRE, HYDROSTEER 150CM [id number] 05-12-2020 ANGLED GLIDE History: Current Medications Medication Dosage/Unit Route Frequency Last Date/Time Taken Statins (any) Beta Naveed Imdur ASA PLAVIX LISINOPRIL HEPARIN History: Allergies Allergy Reaction No Known Allergies History: Risk Factors Family History of Hypertension Dyslipidemia Previous VT Previous Heart Failure Premature CAD Yes Yes No Yes No Prior Valve Prior PCI Prior PCIDate Prior CABG Prior CABGDate Surgery No Yes 07/14/2000 Yes 07/14/2001 Cerebrovascular Peripheral Artery Chronic Lung On Dialysis Diabetes Disease Disease Disease No Yes Yes Yes No History: Symptoms/Diagnosis Selection Items SOB History: Stress Tests Stress or Imaging Studies Performed No History: Other Current Smoker Method Packs a Day Years Used Pack Years Yes Cigarettes 1 55 55 Labs Hgb (g/dl) Hct (%) WBC (l/cumm) Platelets (thousands) 11.60-17.00 35.00-51.00 4.00-11.00 150.00-450.00 11.1 31 14.8 233 Glucose (mg/dl) BUN (mg/dl) Creatinine (mg/dl) BUN:Creatinine (1:x) 74.00-106.00 7.00-18.00 0.50-1.30 10.00-20.00 119 31 0.7 44.3 Na (meq/l) K (meq/l) 136.00-145.00 3.50-5.10 142 4.6 INR (PTT:PT) 0.90-1.10 1 Troponin I (ng/ml) CPK (u/l) CPK-MB (ng/ML) 0.02-0.05 26.00-308.00 0.50-3.60 2.09 117 6.4 Medication Medication Total Dose (Bolus/Oral) Medication Total Dosage/Unit 1% XYLOCAINE 20 mL BRILINTA 180 mg FENTANYL 25 mcg HEPARIN 6400 units NTG (IC) 200 mcg VERSED 0.5 mg Medications (Bolus/Oral) Medication Time Given Dosage/Unit Administered By Reason VERSED 07/25/2017 11:08:26 AM 0.5 mg Bhumika Ram 0.5 mg VERSED given in lab by Bhumika Ram RN in Right Arm via Peripheral IV. FENTANYL 07/25/2017 11:09:41 AM 25 mcg Bhumika Ram 25 mcg FENTANYL given in lab by Bhumika Ram RN in Right Arm via Peripheral IV. 1% XYLOCAINE 07/25/2017 11:10:03 AM 20 mL Jose Grove 20 mL 1% XYLOCAINE given in lab by Jose Grove in Right Groin via Subcutaneous. HEPARIN 07/25/2017 11:47:06 AM 5400 units Nick Jackson RN 5400 units HEPARIN given in lab by Nick Jackson RN in Right Antecubital via Peripheral IV. Ordered by Jose Grove HEPARIN 07/25/2017 12:00:48 PM 1000 units Nick Jackson RN 1000 units HEPARIN given in lab by Nick Jackson RN in Right Arm via Peripheral IV. Ordered by Jose Cardoso NTG (IC) 07/25/2017 12:07:05 PM 200 mcg Jose Grove 200 mcg NTG (IC) given in lab by Jose Grove via Intra-coronary. Ordered by Jose Grove. BRILINTA 07/25/2017 12:24:08 PM 180 mg Bhumika Ram 180 mg BRILINTA given in lab by Bhumika Ram, RN via Oral. Ordered by Jose Grove Medication (Drip) Medication Time Given Dosage/Unit Concentration/Unit Diluent (ml) Soluti on HEPARIN DRIP STOPPED 07/25/2017 10:30:25 AM 0 units/hr 0 Patient arrived on 0 units/hr HEPARIN DRIP STOPPED via Peripheral IV. Pump/Drip Flow = 0 ml/hr using [Solution Name]. IV Solutions 07/25/2017 10:42:48 AM 0 mL (IV) 1000 NaCl .9 IV Solutions given in lab by Bhumika Ram, SIMBA in Right Arm via Peripheral IV. Pump/Drip Flow = 30 ml/hr using NaCl .9. Initial Case Assessment Cardiovascular HR Rhythm NIBP Chest Pain 67 reg 147/81 0 Edema Present Skin color Skin Mild Normal Warm Dry Circulatory - Right Pulses Dorsalis Pedis Femoral d 2 Scale (0,1,2,3,4,d) Circulatory - Left Pulses Dorsalis Pedis Femoral d 1 Scale (0,1,2,3,4,d) Circulatory - Lower Extremities Color Lower Right Color Lower Left Normal Normal Neurological State Oriented to time-place- Alert Moves all extremities person Respiration - General Respiration Rate SpO2 (%) (B/min) 20 97 Chronological Log Time Study Chronological Log Patient arrived on 0 units/hr HEPARIN DRIP STOPPED via Peripheral IV. Pump/Drip Flow = 0 ml/hr using [Solution 10:30:25 Name]. 10:38:15 Patient Name, D.O.B, / Armband Verified By R.N. 10:38:19 Patient arrived via Bed. 10:42:19 Consent signed by the physician and the patient and verified by the Marine Under[employer] staff. 10:42:19 Pre-op and post- op instructions given; patient acknowledges understanding of instructions. 10:42:20 Verbal Stimulation=2 Physical Stimulation=2 Airway=2 Respiration=2 TOTAL=8. (0=absent, 1=li mited, 2=present) 10:42:21 Presedation assessment performed by Marine Underwriter RN. Vitals capture started with the following parameters, Patient=Adult, Interval=5 min, Initial Pr gtvtyf=734 mmHg, 10:42:23 Deflation Rate=5 mmHg, Cuff placed on Left Arm 10:42:40 Patient has been NPO for More than 6Hrs. 10:42:41 Skin Breakdown none per pt 10:42:42 Patient Warmer Placed on the Table. 10:42:46 Vinicio Prominences Protected 10:42:47 A # 20 IV was noted in the Upper Arm (right). Grade = 0 IV Solutions given in lab by Bhumika Ram, RN in Right Arm via Peripheral IV. Pump/Drip Flow = 30 ml/hr using NaCl 10:42:48 .9. 10:42:49 History and physical on the chart or being dictated. Assessment: Initial Case, HR=67 BPM, Rhythm=reg, KWBF=812/81 mmhg, Chest Pain=0, Edema=Mild, Co mya=Normal, Skin = Warm, Dry Right Pulses: Jonh Ped=d, Femoral=2 Left Pulses: Jonh Ped=d, Femoral=1 10:42:49 Lower Right Extremities: Color=Normal Lower Left Extremities: Color=Normal Neurological: State=Alert, Ox3, HORN Respiration: Resp=20 B/min, SpO2=97 % 10:42:57 HR=64 bpm, LOZE=840/81 mmhg, SpO2=97.0 %, Resp=6 B/min, Pain=0, Collins=10, Stark=2 10:43:33 Reference ECG taken 10:46:20 A # 20 IV was noted in the Hand (left). Grade = 0 10:48:00 HR=60 bpm, GTFN=849/76 mmhg, SpO2=97.0 %, Resp=26 B/min, Pain=0, Collins=10, Stark=2 10:49:58 Bilateral groins prepped with 2% chlorhexidine, and draped after a 3 minute waiting time. 10:52:57 HR=64 bpm, CDBS=334/81 mmhg, SpO2=96.0 %, Resp=36 B/min, Pain=0, Collins=10, Stark=2 10:54:13 Pressure channel 1 zeroed. 10:58:02 HR=62 bpm, YAUZ=316/76 mmhg, SpO2=95.0 %, Resp=39 B/min, Pain=0, Collins=10, Stark=2 11:02:59 HR=60 bpm, OIFC=401/78 mmhg, SpO2=95.0 %, Resp=32 B/min, Pain=0, Collins=10, Stark=2 11:08:00 HR=62 bpm, MCEQ=018/73 mmhg, SpO2=96.0 %, Resp=39 B/min, Pain=0, Collins=10, Stark=2 11:08:26 0.5 mg VERSED given in lab by Bhumika Ram, RN in Right Arm via Peripheral IV. Time Out. Correct patient, correct procedure, correct physician, power injector not loaded with contrast with surgical 11:08:54 team present. Time Out Concurred by MD and individual staff in procedure. 11:09:04 Case Start 11:09:41 25 mcg FENTANYL given in lab by Bhumika Ram, SIMBA in Right Arm via Peripheral IV. 11:10:03 20 mL 1% XYLOCAINE given in lab by Jose Grove in Right Groin via Subcutaneous. 11:11:55 Access site was Right Femoral Artery. A INTRODUCER SET, MICROPUNCTURE, STIFFENED FR 5 was advanced into the Fem Art (right) using the 11:12:32 Percutaneous technique. A SHEATH, FR5 TERUMO (10CM) FR 5 was exchanged in the Fem Art (right). This was necessary in or niraj to 11:12:37 accomodate a larger catheter. 11:12:46 An injection in the Fem Art (right) was made through the SHEATH, FR5 TERUMO (10CM) FR 5. 11:12:57 HR=59 bpm, GMBM=999/90 mmhg, SpO2=94.0 %, Resp=30 B/min, Pain=0, Collins=10, Stark=2 A JR 4.0 DXTERITY CATHETER FR 5 was advanced over a wire. OMNIPAQUE, 350 MG, 150ML 150ML was us ed for 11:13:29 injections. Recorded Pressure: LV, HR=68, Condition=Condition 1 11:15:04 (Left Ventricle) LV 146/16/36 Recorded Pressure: LV, Ao, HR=61, Condition=Condition 1 11:15:15 (Left Ventricle) LV 153/12/37, (Aorta) Ao 141/26/88 Recorded Pressure: Ao, HR=65, Condition=Condition 1 11:15:51 (Aorta) Ao 140/63/95 11:16:13 The RCA was injected and visualized at various angles. OMNIPAQUE, 350 MG, 150ML 150ML used . The Gft. Stump 1 (SVG to RCA) was injected and visualized at various angles. OMNIPAQUE, 350 MG, 150ML 150ML 11:16:52 used. 11:17:29 The SVG-OM was injected and visualized at various angles. OMNIPAQUE, 350 MG, 150ML 150ML us ed. 11:17:56 HR=65 bpm, HQTK=365/86 mmhg, SpO2=94.0 %, Resp=18 B/min, Pain=0, Collins=10, Stark=2 11:22:59 HR=64 bpm, UKUZ=107/73 mmhg, SpO2=93.0 %, Resp=18 B/min, Pain=0, Collins=10, Stark=2 11:26:09 After removing the current catheter a catheter was advanced over a WIRE, 3MMJ .035 180CM 18 0CM. 11:27:47 The LCA was injected and visualized at various angles. OMNIPAQUE, 350 MG, 150ML 150ML used . 11:27:58 HR=59 bpm, QLYL=945/88 mmhg, SpO2=93.0 %, Resp=21 B/min, Pain=0, Collins=10, Stark=2 11:28:30 The PADILLA Graft Stump was injected and visualized at various angles. contrast used. After removing the current catheter a PIGTAIL ANG. INFINITI CATHETER FR 5 was advanced over a W OK, 3MMJ .035 11:32:14 180CM 180CM. 11:33:01 HR=60 bpm, QRRA=436/78 mmhg, SpO2=94 %, Resp=16 B/min 11:34:50 The Asc. Aorta (A) was injected at 12 cc/sec for a total of 36. OMNIPAQUE, 350 MG, 150ML 15 0ML used. After removing the current catheter a JR 4.0 DXTERITY CATHETER FR 5 was advanced over a WIRE, 3 MMJ .035 180CM 11:37:39 180CM. 11:38:00 HR=59 bpm, XNXI=283/80 mmhg, SpO2=93.0 %, Resp=18 B/min 11:39:40 J Wire removed 11:39:48 A WIRE, HYDROSTEER 150CM ANGLED GLIDE 150CM was inserted via Fem Art (right). 11:42:51 Jackson Wire removed 11:43:03 HR=57 bpm, PXZO=919/73 mmhg, SpO2=92.0 %, Resp=20 B/min 11:45:09 A WIRE, 3MMJ .035 180CM 180CM was inserted via Fem Art (right). A SHEATH, FR6 TERUMO (10CM) FR 6 was exchanged in the Fem Art (right). This was necessary in or niraj to 11:45:14 accomodate a larger catheter. 5400 units HEPARIN given in lab by Nick Jackson RN in Right Antecubital via Peripheral IV. Orde red by Jose Grove 11:47:06 G. 11:48:00 HR=60 bpm, RZZE=055/82 mmhg, SpO2=93.0 %, Resp=20 B/min A EBU 3.5 Z2 GUIDE CATHETER FR 6 was advanced over a wire. OMNIPAQUE, 350 MG, 150ML 150ML was u sed for 11:48:13 injections. 11:50:20 A WIRE, VIPER ADVANCE CORONARY was inserted via Fem Art (right). 11:53:03 HR=57 bpm, DAXU=549/72 mmhg, SpO2=91.0 %, Resp=20 B/min 11:54:46 Interventional wire has crossed the lesion 11:54:50 Activated Clotting Time Drawn 11:58:00 HR=59 bpm, RHYF=790/79 mmhg, SpO2=92.0 %, Resp=20 B/min 11:58:23 An CATHETER, CORONARY CLASSIC 1.25MM catheter was inserted into the Fem Art (right). 12:00:15 ACT (Normal Range 90-180) = 291 12:00:48 1000 units HEPARIN given in lab by Nick Jackson RN in Right Arm via Peripheral IV. Ordered by Jose Grove 12:01:11 Atherectomy device in use in PROX LAD in 20 second interval. 12:02:14 Atherectomy device in use in PROX LAD in 20 second interval. 12:03:04 HR=58 bpm, FHTK=362/75 mmhg, SpO2=91.0 %, Resp=20 B/min, Pain=0, Collins=10, Stark=2 12:03:16 Atherectomy device in use in PROX LAD in 20 second interval. 12:04:18 Atherectomy device in use in PROX LAD in 20 second interval. 12:06:39 Atherectomy device removed 12:07:05 200 mcg NTG (IC) given in lab by Jose Grove via Intra-coronary. Ordered by Jose Cardoso. A BALLOON, 2.75 X 15MM EUPHORA 15MM was inserted over WIRE, VIPER ADVANCE CORONARY via the Fem Art 12:07:23 (right). 12:08:03 HR=62 bpm, ZHBH=624/82 mmhg, SpO2=88.0 %, Resp=21 B/min, Pain=0, Collins=10, Stark=2 A BALLOON, 2.75 X 15MM EUPHORA 15MM over a WIRE, VIPER ADVANCE CORONARY in the LAD Prox was inf lated 12:08:27 using a 30 JAIME INDEFLATOR at 10 jaime for 20 sec. A BALLOON, 2.75 X 15MM EUPHORA 15MM over a WIRE, VIPER ADVANCE CORONARY in the LAD Prox was inf lated 12:09:17 using a 30 JAIME INDEFLATOR at 14 jaime for 20 sec. 12:10:14 Balloon Removed 12:13:02 HR=56 bpm, TJUU=209/80 mmhg, SpO2=88.0 %, Resp=17 B/min A STENT, 3.0 22MM KHANG 3.0 22MM was advanced through a EBU 3.5 Z2 GUIDE CATHETER FR 6 over a WI RE, VIPER 12:13:02 ADVANCE CORONARY. A STENT, 3.0 22MM KHANG 3.0 22MM was deployed using a 30 JAIME INDEFLATOR at 12 atmospheres for 30 seconds in 12:13:13 the LAD Prox. 12:14:13 Delivery device removed A BALLOON, 2.75 X 15MM EUPHORA 15MM was inserted over WIRE, VIPER ADVANCE CORONARY via the Fem Art 12:15:25 (right). A BALLOON, 2.75 X 15MM EUPHORA 15MM over a WIRE, VIPER ADVANCE CORONARY in the LAD Prox was inf lated 12:16:32 using a 30 JAIME INDEFLATOR at 16 jaime for 20 sec. A BALLOON, 2.75 X 15MM EUPHORA 15MM over a WIRE, VIPER ADVANCE CORONARY in the LAD Prox was inf lated 12:17:13 using a 30 JAIME INDEFLATOR at 18 jaime for 20 sec. A BALLOON, 2.75 X 15MM EUPHORA 15MM over a WIRE, VIPER ADVANCE CORONARY in the LAD Prox was inf lated 12:17:45 using a 30 JAIME INDEFLATOR at 20 jaime for 10 sec. 12:18:03 HR=62 bpm, KYZS=449/89 mmhg, SpO2=87.0 %, Resp=17 B/min, Pain=0, Collins=10, Stark=2 12:18:52 Balloon Removed. 12:20:56 Catheter was removed 12:20:57 Wire removed 12:22:12 Activated Clotting Time Drawn 12::23 Case End 12:23:06 HR=60 bpm, JKHO=772/77 mmhg, SpO2=90.0 %, Resp=19 B/min, Pain=0, Collins=10, Stark=2 12:23:07 Catheter(s) removed without difficulty 12:23:16 No case complications noted. 12:23:20 A Left Heart Cath was performed. 12:24:08 180 mg BRILINTA given in lab by Bhumika Ram RN via Oral. Ordered by Jose Grove 12:24:52 In the Fem Art (right) the SHEATH, FR6 TERUMO (10CM) FR [address] by Fabian Cruz RT(R). 12:28:05 HR=57 bpm, UXCO=287/76 mmhg, SpO2=89.0 %, Resp=17 B/min 12:29:38 ACT (Normal Range 90-180) = 281 12:34:29 Contrast Scanned 12:34:32 Implantable Device card placed in patient's chart. 12:34:34 Bedside Report will be given. 12:34:37 Cine recording checked. 12:34:47 In the Fem Art (right) the SHEATH, FR6 TERUMO (10CM) FR [address] by Fabian Cruz RT(R). End Study - Contrast Media Used In Study Contrast Total Opened (mL) Total Used (mL) Total Wasted (mL) Omnipaque 180 180 0 End Study - Maximum Contrast Load Max Contrast Load (mL) 535.7 End Study - Radiation Exposure Fluoro Time (minutes) 21.4 End Study - Patient Disposition Complications Transferred To Interventional Outcome No Marine Underwriter Holding successful
[2017-07-25] MEDS ORDERED: MISC INFORMATION XX ONE (13:00)
[2017-07-25] MEDS ORDERED: ATROPINE SULFATE 1 MG/ML VIAL IV PUSH PRN (13:00)
--- NOTE | 2017-07-25 14:47 | PD.CARD.PN ---
Subjective Subjective Remarks No events overnight Post-cath today No chest pain/SOB Objective Medications Current Medications Medications (Trade) Dose Ordered Sig/Mirna Route Start Time Stop Time Status Last Admin (SoluMEDROL INJ) 40 mg Q6HR IV PUSH 07/23/17 00:00 07/25/17 07:49 (Duoneb Neb) 1 ampule Q4HR NEB PRN NEB 07/22/17 19:15 (Symbicort 160-4.5 Mcg Inh) 2 puff Q12HR INH 07/22/17 21:00 07/25/17 08:29 Ceftriaxone Sodium 1000 mg/ Sodium Chloride 100 ml @ 200 mls/hr Q24H IV 07/23/17 20:00 07/24/17 20:31 Azithromycin 500 mg/Sodium Chloride 250 ml @ 250 mls/hr Q24H IV 07/23/17 20:00 07/24/17 21:27 (NS Flush) 2 ml UNSCH PRN IV FLUSH 07/22/17 19:15 (NS Flush) 2 ml BID IV FLUSH 07/22/17 21:00 07/25/17 08:30 (Zofran Inj) 4 mg Q6H PRN IVP 07/22/17 19:15 (Tylenol) 650 mg Q6H PRN PO 07/22/17 19:15 ([place] 10-325 Mg) 1 tab Q4H PRN PO 07/22/17 19:15 (Kaylene-Colace) 1 tab BID PO 07/22/17 21:00 07/25/17 08:30 (Milk Of Magnesia Liq) 30 ml Q12H PRN PO 07/22/17 19:15 (Senokot) 17.2 mg Q12H PRN PO 07/22/17 19:15 (Dulcolax Supp) 10 mg DAILY PRN RECTAL 07/22/17 19:15 (Lactulose Liq) 30 ml DAILY PRN PO 07/22/17 19:15 (Aspirin Chew) 81 mg DAILY CHEW 07/23/17 09:00 07/25/17 08:30 (Wellbutrin Sr 12 Hr) 100 mg Q12HR PO 07/22/17 21:00 07/25/17 08:30 (Plavix) 75 mg DAILY PO 07/23/17 09:00 07/25/17 08:30 (Pepcid) 20 mg BID PO 07/23/17 11:00 07/25/17 08:30 (Mucinex Er) 600 mg BID PO 07/23/17 12:45 07/25/17 08:29 (Xanax) 0.5 mg Q8H PRN PO 07/23/17 12:45 (Lipitor) 80 mg HS PO 07/23/17 21:00 07/24/17 23:46 (Vitamin D3) 1,000 units DAILY PO 07/23/17 12:45 07/25/17 08:29 (Depakote Er) 250 mg HS PO 07/23/17 21:00 07/24/17 23:45 (Isordil) 10 mg TID PO 07/23/17 13:00 07/25/17 08:29 (Prinivil) 20 mg DAILY PO 07/23/17 12:45 07/25/17 08:30 (Lopressor) 50 mg BID PO 07/23/17 12:45 07/25/17 08:30 (Flomax) 0.4 mg HS PO 07/23/17 21:00 07/25/17 00:08 (Heparin Inj) 5,000 units UNSCH PRN IV PUSH 07/24/17 17:45 (Heparin Inj) 2,500 units UNSCH PRN IV PUSH 07/24/17 17:45 07/25/17 06:49 Heparin Sodium/ Dextrose 250 ml @ 9 mls/hr TITRATE PRN IV 07/24/17 11:45 07/24/17 19:09 (Atropine Inj) 0.5 mg UNSCH PRN IV PUSH 07/25/17 13:00 Vital Signs / I&O Vital Signs Date Time Temp Pulse Resp B/P (MAP) Pulse Ox O2 Delivery O2 Flow Rate FiO2 07/25/17 12:44 89 Room Air 07/25/17 08:20 60 07/25/17 08:00 98.1 61 19 140/65 (90) 94 07/25/17 04:11 97.8 58 18 124/64 (84) 94 07/24/17 16:18 97.9 60 20 120/68 (85) 96 I/O 2/11/18 2/11/18 2/11/18 2/12/18 2/12/18 2/12/18 07:00 15:00 23:00 07:00 15:00 23:00 Intake Total 900 ml Output Total 0 ml Balance 900 ml Intake Oral 900 ml Output Stool Total 0 ml # Voids 5 Physical Exam GENERAL: NAD, AAOx3 SKIN: Warm and dry. HEAD: Atraumatic. Normocephalic. EYES: Pupils equal and round. No scleral icterus. No injection or drainage. ENT: No nasal bleeding or discharge. Mucous membranes pink and moist. NECK: Trachea midline. No JVD. CARDIOVASCULAR: Regular rate and rhythm. Sternotomy healed RESPIRATORY: No accessory muscle use. Clear to auscultation. Breath sounds equal bilaterally. GASTROINTESTINAL: Abdomen soft, non-tender, nondistended. Hepatic and splenic margins not palpable. MUSCULOSKELETAL: Extremities without clubbing, cyanosis, or edema. No obvious deformities. NEUROLOGICAL: Awake and alert. No obvious cranial nerve deficits. Motor grossly within normal limits. Five out of 5 muscle strength in the arms and legs. Normal speech. PSYCHIATRIC: Appropriate mood and affect; insight and judgment normal. Laboratory Laboratory Tests Test 07/24/17 16:35 07/25/17 05:21 White Blood Count 17.6 TH/MM3 14.8 TH/MM3 Red Blood Count 3.37 MIL/MM3 3.09 MIL/MM3 Hemoglobin 11.0 GM/DL 11.1 GM/DL Hematocrit 33.0 % 31.0 % Mean Corpuscular Volume 98.0 FL 100.4 FL Mean Corpuscular Hemoglobin 32.6 PG 35.9 PG Mean Corpuscular Hemoglobin Concent 33.2 % 35.8 % Red Cell Distribution Width 14.4 % 14.0 % Platelet Count 222 TH/MM3 233 TH/MM3 Mean Platelet Volume 8.9 FL 8.5 FL Prothrombin Time 10.6 SEC Prothromb Time International Ratio 1.0 RATIO Activated Partial Thromboplast Time 23.5 SEC 38.0 SEC Neutrophils (%) (Auto) 86.7 % Lymphocytes (%) (Auto) 8.5 % Monocytes (%) (Auto) 4.7 % Eosinophils (%) (Auto) 0.0 % Basophils (%) (Auto) 0.1 % Neutrophils # (Auto) 12.9 TH/MM3 Lymphocytes # (Auto) 1.3 TH/MM3 Monocytes # (Auto) 0.7 TH/MM3 Eosinophils # (Auto) 0.0 TH/MM3 Basophils # (Auto) 0.0 TH/MM3 CBC Comment DIFF FINAL Differential Comment Blood Urea Nitrogen 31 MG/DL Creatinine 0.76 MG/DL Random Glucose 119 MG/DL Total Protein 5.9 GM/DL Albumin 2.5 GM/DL Calcium Level 8.2 MG/DL Phosphorus Level 2.8 MG/DL Magnesium Level 2.2 MG/DL Alkaline Phosphatase 55 U/L Aspartate Amino Transf (AST/SGOT) 8 U/L Alanine Aminotransferase (ALT/SGPT) 14 U/L Total Bilirubin 0.4 MG/DL Sodium Level 142 MEQ/L Potassium Level 4.6 MEQ/L Chloride Level 110 MEQ/L Carbon Dioxide Level 26.0 MEQ/L Anion Gap 6 MEQ/L Estimat Glomerular Filtration Rate 101 ML/MIN Assessment and Plan Problem List: (1) CAD (coronary artery disease) ICD Codes: I25.10 - Atherosclerotic heart disease of [place] coronary artery without angina pectoris (2) Hx of CABG ICD Codes: Z95.1 - Presence of aortocoronary bypass graft (3) NSTEMI (non-ST elevated myocardial infarction) ICD Codes: I21.4 - Non-ST elevation (NSTEMI) myocardial infarction (4) Tobacco abuse ICD Codes: Z72.0 - Tobacco use (5) COPD (chronic obstructive pulmonary disease) ICD Codes: J44.9 - Chronic obstructive pulmonary disease, unspecified (6) COPD exacerbation ICD Codes: J44.1 - Chronic obstructive pulmonary disease with (acute) exacerbation Status: Acute (7) Pneumonia ICD Codes: J18.9 - Pneumonia, unspecified organism Status: Acute (8) Leukocytosis ICD Codes: D72.829 - Elevated white blood cell count, unspecified Status: Acute Assessment and Plan 1) NSTEMI/CAD Hx of CABG (1/3 graft patent) s/p PCI of LAD with CSI atherectomy ASA/Plavix/BB/Statin/JAVON-I 2) Tobacco Abuse Cessation Plan to quit 3) Probable peripheral vascular disease [facility], but if possible will follow up outpatient with myself for further diagnostics and intervention 4) Plan to watch overnight and if stable DC home tomorrow Jose Grove DO Jul 25, 2017 14:47
[2017-07-25] MEDS ORDERED: IOHEXOL 350 MG/ML 100 ML BTL (for Cath Lab) OTHER ONE (16:25)
[2017-07-25] MEDS: AZITHROMYCIN INJ 500 MG in SODIUM CHLOR 0.9% 250 ML INJ 250 ML IV SCH (19:23)
[2017-07-25 20:00] VITALS: BP 120/80; PULSE 60; PULSE 63; TEMP 97.7; O2SAT 100
[2017-07-25] MEDS: cefTRIAXone INJ 1,000 MG in SODIUM CHLORIDE 0.9% INJ 100 ML IV SCH (20:40)
[2017-07-25 21:00] VITALS: PULSE 75
[2017-07-25 22:00] VITALS: PULSE 62
[2017-07-25] MEDS: ATORVASTATIN 80 MG TAB PO SCH (22:23)
[2017-07-25] MEDS: DIVALPROEX SODIUM E.R. 250 MG TAB PO SCH (22:30)
[2017-07-26] VITALS (15 sets, daily range): BP systolic 118–155; BP diastolic 60–83; PULSE 52–101; RESP 18; TEMP 97.4–98.2; O2SAT 96–100
[2017-07-26] MEDS: methylPREDNISolone SOD SUCC 40 MG/1 ML VIAL IV PUSH SCH ×2 (05:20→11:25)
[2017-07-26 06:44] LABS: AUTOMATED NEUTROPHIL # 9.1 TH/MM3 (1.8-7.7); BASOPHIL % 0.1 % (0.0-2.0); HEMATOCRIT 32.6 % (39.0-51.0); HEMOGLOBIN 11.1 GM/DL (13.0-17.0); LYMPH % 8.4 % (9.0-44.0); LYMPHOCYTE # 0.9 TH/MM3 (1.0-4.8); MEAN CELL VOLUME 96.7 FL (80.0-100.0); MEAN CORPUSCULAR HEMOGLOBIN 32.9 PG (27.0-34.0); MEAN PLATELET VOLUME 8.7 FL (7.0-11.0); MONO % 5.9 % (0.0-8.0); MONOCYTE # 0.6 TH/MM3 (0-0.9); NEUT % 85.6 % (16.0-70.0); PLATELET COUNT 242 TH/MM3 (150-450); RED BLOOD COUNT 3.37 MIL/MM3 (4.50-5.90); WHITE BLOOD COUNT 10.6 TH/MM3 (4.0-11.0)
[2017-07-26 07:01] LABS: BICARBONATE 27.5 MEQ/L (21.0-32.0); CALCIUM 8.1 MG/DL (8.5-10.1); CREATININE 0.8 MG/DL (0.60-1.30)
--- NOTE | 2017-07-26 09:04 | HHI.PR ---
Subjective Remarks in no acute distress. denies chest pain. sob has much improved. no fever. Objective Vitals Vital Signs Date Time Temp Pulse Resp B/P (MAP) Pulse Ox O2 Delivery O2 Flow Rate FiO2 07/26/17 07:30 98.0 65 18 150/83 (105) 96 07/26/17 06:42 101 07/26/17 05:02 54 07/26/17 04:14 52 07/26/17 03:32 58 07/26/17 03:09 97.4 55 118/68 (85) 98 07/26/17 02:00 56 07/26/17 01:26 75 07/26/17 00:04 97.7 62 127/60 (82) 100 07/26/17 00:00 56 07/25/17 22:00 62 07/25/17 21:00 75 07/25/17 20:00 60 07/25/17 20:00 97.7 63 120/80 (93) 100 07/25/17 12:44 89 Room Air I/O 07/25/17 07/25/17 07/25/17 07/26/17 07/26/17 07/26/17 07:00 15:00 23:00 07:00 15:00 23:00 Intake Total 240 ml Output Total 300 ml Balance -60 ml Intake Oral 240 ml Output Urine Total 300 ml # Voids 1 Result Diagram: 07/26/17 0447 07/26/17 0447 Imaging Last Impressions Chest X-Ray 07/22/17 1713 Signed Impressions: Service Date/Time: Saturday, July 22, 2017 17:28 - CONCLUSION: 1. Old granulomatous disease. 2. Airspace process laterally in the right lower lung field may represent additional areas of partially calcified granulomatous disease although early infiltrate cannot be excluded. I have no priors to establish chronicity. Noncontrasted CT scan of the chest be performed for further characterization if clinically warranted. Godwin Toro MD Objective Remarks GENERAL: This is a well-nourished, well-developed patient, in no apparent distress. CARDIOVASCULAR: Regular rate and regular rhythm without murmurs, gallops, or rubs. RESPIRATORY: Clear to auscultation. Breath sounds equal bilaterally. No wheezes , rales, or rhonchi. GASTROINTESTINAL: Abdomen soft, non-tender, nondistended. Normal, active bowel sounds MUSCULOSKELETAL: Extremities without clubbing, cyanosis, or edema. NEURO: Alert & Oriented x4 to person, place, time, situation. Moves all ext x4 Procedures cardiac cath Medications and IVs Inpatient Medications Acetaminophen (Tylenol) 650 mg Q6H PRN PO FEVER/PAIN SCALE 1 TO 2; Start at 19:15 Acetaminophen/ Hydrocodone Bitart ([place] 5-325 Mg) 1 tab Q4H PRN PO PAIN SCALE 3 TO 5; Start 07/22/17 at 19:15; Stop 07/23/17 at 14:44; Status DC Acetaminophen/ Hydrocodone Bitart ([place] 10-325 Mg) 1 tab Q4H PRN PO PAIN SCALE 6 TO 10; Start 07/22/17 at 19:15 Albuterol/ Ipratropium (Duoneb Neb) 1 ampule Q4HR NEB PRN NEB SOB/WHEEZING; Start 07/22/17 at 19:15 Alprazolam (Xanax) 0.5 mg Q8H PRN PO ANXIETY; Start 07/23/17 at 12:45 Aspirin (Aspirin Chew) 81 mg DAILY CHEW Last administered on 07/25/17at 08:30; Start 07/23/17 at 09:00 Atorvastatin Calcium (Lipitor) 80 mg HS PO Last administered on 07/25/17at 22:23 ; Start 07/23/17 at 21:00 Atropine Sulfate (Atropine Inj) 0.5 mg UNSCH PRN IV PUSH VAGAL REPONSE; Start 07/25/17 at 13:00 Azithromycin 500 mg/Sodium Chloride 250 ml @ 250 mls/hr Q24H IV Last administered on 07/25/17at 19:23; Start 07/23/17 at 20:00 Bisacodyl (Dulcolax Supp) 10 mg DAILY PRN RECTAL SEVERE CONSITIPATION; Start at 19:15 Budesonide/ Formoterol Fumarate (Symbicort 160-4.5 Mcg Inh) 2 puff Q12HR INH Last administered on 07/25/17at 22:24; Start 07/22/17 at 21:00 Bupropion HCl (Wellbutrin Sr 12 Hr) 100 mg Q12HR PO Last administered on at 22:30; Start 07/22/17 at 21:00 Bupropion HCl (Wellbutrin) 75 mg DAILY PO ; Start 07/23/17 at 12:45; Stop at 14:44; Status DC Ceftriaxone Sodium 1000 mg/ Sodium Chloride 100 ml @ 200 mls/hr Q24H IV Last administered on 07/25/17at 20:40; Start 07/23/17 at 20:00 Cholecalciferol (Vitamin D3) 1,000 units DAILY PO Last administered on 08:29; Start 07/23/17 at 12:45 Clopidogrel Bisulfate (Plavix) 75 mg DAILY PO Last administered on 07/25/17 08 :30; Start 07/23/17 at 09:00 Divalproex Sodium (Depakote Er) 250 mg HS PO Last administered on 07/25/17 22: 30; Start 07/23/17 at 21:00 Famotidine (Pepcid) 20 mg BID PO Last administered on 07/25/17 22:22; Start at 11:00 Guaifenesin (Mucinex Er) 600 mg BID PO Last administered on 07/25/17 22:22; Start 07/23/17 at 12:45 Heparin Sodium (Porcine) (Heparin Inj) 2,500 units UNSCH PRN IV PUSH APTT 25 TO 39 Last administered on 07/25/17 06:49; Start 07/24/17 at 17:45 Heparin Sodium/ Dextrose 250 ml @ 9 mls/hr TITRATE PRN IV Coagulation Management Last administered on 07/24/17 19:09; Start 07/24/17 at 11:45 Isosorbide Dinitrate (Isordil) 10 mg TID PO Last administered on 07/25/17 18: 46; Start 07/23/17 at 13:00 Isosorbide Mononitrate (Ismo) 10 mg BID PO Last administered on 07/23/17 09:37 ; Start 07/22/17 at 21:00; Stop 07/23/17 at 14:44; Status DC Lactulose (Lactulose Liq) 30 ml DAILY PRN PO SEVERE CONSITIPATION; Start at 19:15 Lisinopril (Prinivil) 20 mg DAILY PO Last administered on 07/25/17 08:30; Start 07/23/17 at 12:45 Magnesium Hydroxide (Milk Of Magnjulia Liq) 30 ml Q12H PRN PO Mild constipation ; Start 07/22/17 at 19:15 Methylprednisolone Sodium Succinate (SoluMEDROL INJ) 40 mg Q6HR IV PUSH Last administered on 07/26/17at 05:20; Start 07/23/17 at 00:00 Metoprolol Succinate (Toprol Xl) 25 mg DAILY PO Last administered on 07/23/17at 09:37; Start 07/23/17 at 09:00; Stop 07/23/17 at 12:48; Status DC Metoprolol Tartrate (Lopressor) 50 mg BID PO Last administered on 07/25/17at 22: 22; Start 07/23/17 at 12:45 Miscellaneous Information 1 ONCE ONCE XX ; Start 07/25/17 at 13:00; Stop at 13:01; Status DC Ondansetron HCl (Zofran Inj) 4 mg Q6H PRN IVP NAUSEA OR VOMITING; Start at 19:15 Senna/Docusate Sodium (Kaylene-Colace) 1 tab BID PO Last administered on at 22:22; Start 07/22/17 at 21:00 Sennosides (Senokot) 17.2 mg Q12H PRN PO Moderate constipation; Start 07/22/17 at 19:15 Sodium Chloride 250 ml @ 250 mls/hr BOLUS ONCE IV Last administered on at 04:24; Start 07/23/17 at 02:00; Stop 07/23/17 at 02:59; Status DC Sodium Chloride (NS Flush) 2 ml BID IV FLUSH Last administered on 07/25/17at 21: 00; Start 07/22/17 at 21:00 Tamsulosin HCl (Flomax) 0.4 mg HS PO Last administered on 07/25/17at 22:23; Start 07/23/17 at 21:00 A/P Problem List: (1) COPD (chronic obstructive pulmonary disease) ICD Code: J44.9 - Chronic obstructive pulmonary disease, unspecified (2) PNA (pneumonia) ICD Code: J18.9 - Pneumonia, unspecified organism (3) Bandemia ICD Code: D72.825 - Bandemia (4) Tobacco abuse ICD Code: Z72.0 - Tobacco use (5) NSTEMI (non-ST elevated myocardial infarction) ICD Code: I21.4 - Non-ST elevation (NSTEMI) myocardial infarction (6) COPD exacerbation ICD Code: J44.1 - Chronic obstructive pulmonary disease with (acute) exacerbation Status: Acute (7) Pneumonia ICD Code: J18.9 - Pneumonia, unspecified organism Status: Acute (8) Leukocytosis ICD Code: D72.829 - Elevated white blood cell count, unspecified Status: Acute Assessment and Plan Assessment and Plan COPD: w/ Acute Exacerbation- improving- continue steroids; will switch to po prednisone upon discharge. continue neb treatments- walk test today. PNA: CXR w/ old granulomatous disease, likely RLL infiltrate. continue w/ IV Abx, DuoNeb prn. blood cultures negative and sputum culture with normal respiratory jovani. Tobacco Abuse: Pt counselled. NicoDerm prn if needed. NSTEMI s/p cardiac cath with PCI of LAD with CSI atherectomy continue ASA/Plavix/BB/Statin/JAVON-I DVT Prophylaxis: SCD/Teds. Discharge Planning dc home later today after cleared by cardiology and pending walk test. see med list. f/u; pcp and cardiology. d/w the patient. time spent 35 min. Sahra Mares MD Jul 26, 2017 09:04
[2017-07-26] MEDS ORDERED: VENTAER INH (09:11)
[2017-07-26] MEDS ORDERED: ZITH250T PO (09:11)
[2017-07-26] MEDS ORDERED: SYMB160A INH (09:11)
[2017-07-26] MEDS ORDERED: PRED5TAB PO (09:11)
[2017-07-26] MEDS ORDERED: CEFU1TAB18 PO (09:11)
--- NOTE | 2017-07-26 09:14 | HHI.DS ---
Discharge Summary Admission Date Jul 23, 2017 at 12:38 Discharge Date: Jul 26, 2017 Admitting Diagnosis COPD exacerbation/pneumonia/sepsis (1) COPD (chronic obstructive pulmonary disease) ICD Code: J44.9 - Chronic obstructive pulmonary disease, unspecified Diagnosis: Principal (2) PNA (pneumonia) ICD Code: J18.9 - Pneumonia, unspecified organism Diagnosis: Principal (3) Bandemia ICD Code: D72.825 - Bandemia Diagnosis: Principal (4) Tobacco abuse ICD Code: Z72.0 - Tobacco use Diagnosis: Secondary (5) NSTEMI (non-ST elevated myocardial infarction) ICD Code: I21.4 - Non-ST elevation (NSTEMI) myocardial infarction Diagnosis: Principal (6) COPD exacerbation ICD Code: J44.1 - Chronic obstructive pulmonary disease with (acute) exacerbation Diagnosis: Principal Status: Acute (7) Pneumonia ICD Code: J18.9 - Pneumonia, unspecified organism Diagnosis: Principal Status: Acute Procedures cardiac cath Brief History - From Admission This is a 71-year-old male with a PMH of HTN, CAD, COPD and Tobacco Abuse who presented to the ER with complaints of cough and wheezing starting earlier today. states pt had episode of "dry heaving" and was concerned he was having a heart attack. No c/o chest pain. SOB is moderate, associated w/ wheezing, intermittent and worse w/ exertion. Reports subjective fever/chills. On arrival, BP 131/72, HR 78, O2 sat 98% on RA, Afebrile. WBC 26.9, bands 8% . Chemistry essentially unremarkable. BUN 22. Troponin negative. INR 1.1. CXR with old granulomatous disease, right lower lung infiltrate. S/p Rocephin/ Zithro, Solu-Medrol in ER. CBC/BMP: 07/26/17 0447 07/26/17 0447 Significant Findings Laboratory Tests Test 07/23/17 11:30 07/23/17 17:30 07/23/17 23:52 07/24/17 07:28 Troponin I 1.15 NG/ML (0.02-0.05) 2.46 NG/ML (0.02-0.05) 2.09 NG/ML (0.02-0.05) Creatine Kinase MB 7.6 NG/ML (0.5-3.6) 6.4 NG/ML (0.5-3.6) Blood Urea Nitrogen 28 MG/DL (7-18) Total Protein 6.0 GM/DL (6.4-8.2) Albumin 2.7 GM/DL (3.4-5.0) Calcium Level 8.0 MG/DL (8.5-10.1) Phosphorus Level 1.7 MG/DL (2.5-4.9) Chloride Level 110 MEQ/L (98-107) Hemoglobin A1c 6.1 % (4.3-6.0) Thyroid Stimulating Hormone 3rd Gen 0.326 uIU/ML (0.358-3.740) White Blood Count 20.5 TH/MM3 (4.0-11.0) Red Blood Count 3.44 MIL/MM3 (4.50-5.90) Hemoglobin 11.2 GM/DL (13.0-17.0) Hematocrit 33.9 % (39.0-51.0) Neutrophils (%) (Auto) 88.4 % (16.0-70.0) Lymphocytes (%) (Auto) 6.5 % (9.0-44.0) Neutrophils # (Auto) 18.1 TH/MM3 (1.8-7.7) Monocytes # (Auto) 1.0 TH/MM3 (0-0.9) Test 07/24/17 16:35 07/25/17 05:21 07/26/17 04:47 White Blood Count 17.6 TH/MM3 (4.0-11.0) 14.8 TH/MM3 (4.0-11.0) Red Blood Count 3.37 MIL/MM3 (4.50-5.90) 3.09 MIL/MM3 (4.50-5.90) 3.37 MIL/MM3 (4.50-5.90) Hemoglobin 11.0 GM/DL (13.0-17.0) 11.1 GM/DL (13.0-17.0) 11.1 GM/DL (13.0-17.0) Hematocrit 33.0 % (39.0-51.0) 31.0 % (39.0-51.0) 32.6 % (39.0-51.0) Activated Partial Thromboplast Time 23.5 SEC (24.3-30.1) 38.0 SEC (24.3-30.1) Mean Corpuscular Volume 100.4 FL (80.0-100.0) Mean Corpuscular Hemoglobin 35.9 PG (27.0-34.0) Neutrophils (%) (Auto) 86.7 % (16.0-70.0) 85.6 % (16.0-70.0) Lymphocytes (%) (Auto) 8.5 % (9.0-44.0) 8.4 % (9.0-44.0) Neutrophils # (Auto) 12.9 TH/MM3 (1.8-7.7) 9.1 TH/MM3 (1.8-7.7) Blood Urea Nitrogen 31 MG/DL (7-18) 29 MG/DL (7-18) Random Glucose 119 MG/DL (74-106) Total Protein 5.9 GM/DL (6.4-8.2) Albumin 2.5 GM/DL (3.4-5.0) Calcium Level 8.2 MG/DL (8.5-10.1) 8.1 MG/DL (8.5-10.1) Aspartate Amino Transf (AST/SGOT) 8 U/L (15-37) Chloride Level 110 MEQ/L (98-107) Lymphocytes # (Auto) 0.9 TH/MM3 (1.0-4.8) Imaging Last Impressions Chest X-Ray 07/22/17 3383 Signed Impressions: Service Date/Time: Saturday, July 22, 2017 17:28 - CONCLUSION: 1. Old granulomatous disease. 2. Airspace process laterally in the right lower lung field may represent additional areas of partially calcified granulomatous disease although early infiltrate cannot be excluded. I have no priors to establish chronicity. Noncontrasted CT scan of the chest be performed for further characterization if clinically warranted. Godwin Toro MD PE at Discharge GENERAL: This is a well-nourished, well-developed patient, in no apparent distress. CARDIOVASCULAR: Regular rate and regular rhythm without murmurs, gallops, or rubs. RESPIRATORY: Clear to auscultation. Breath sounds equal bilaterally. No wheezes , rales, or rhonchi. GASTROINTESTINAL: Abdomen soft, non-tender, nondistended. Normal, active bowel sounds MUSCULOSKELETAL: Extremities without clubbing, cyanosis, or edema. NEURO: Alert & Oriented x4 to person, place, time, situation. Moves all ext x4 Hospital Course patient was admitted with pneumonia and NSTEMI. he was started on IV antibiotics and cardiology was consulted. he underwent cardiac cath with PCI of LAD with CSI atherectomy. he will be discharged with po steroids and antibiotics. he will have a f/u with his pcp and cardiology. Pt Condition on Discharge: Stable Discharge Disposition: Discharge Home Discharge Time: > 30 minutes Discharge Instructions DIET: Follow Instructions for: Heart Healthy Diet Activities you can perform: Regular-No Restrictions Follow up Referrals: Cardiology PCP Follow-up New Medications: Albuterol 18 GM Inh (Ventolin Hfa 18 GM Inh) 90 Mcg/Act Aer 2 PUFF INH Q6H PRN for SHORTNESS OF BREATH, #1 INHALER 0 Refills Azithromycin (Zithromax) 250 Mg Tab 250 MG PO DAILY for Infection for 3 Days, #3 TAB 0 Refills Budesonide-Formoterol Inh (Symbicort Inh) 160-4.5 Mcg/Act Aero 1 PUFF INH Q12HR, #1 INHALER 0 Refills Cefuroxime (Ceftin) 250 Mg Tab 500 MG PO BID for infection for 7 Days, #28 TAB 0 Refills Prednisone (Prednisone) 5 Mg Tab 5 MG PO DIRECTED for copd for 10 Days, TAB 0 Refills 40 mg po daily for two days then 30 mg po daily for two days then 20 mg po daily for two days then 10 mg po daily for two days then 5 mg po daily for two days then stop. Continued Medications: Alprazolam (Alprazolam) 0.5 Mg Tab 0.5 MG PO Q8H PRN for ANXIETY, TAB 0 Refills Aspirin (Aspirin) 81 Mg Chew 81 MG CHEW DAILY, TAB 0 Refills Atorvastatin (Atorvastatin) 80 Mg Tab 80 MG PO HS for Cholesterol Management, #30 TAB 0 Refills Bupropion HCl (Bupropion HCl) 75 Mg Tab 75 MG PO DAILY for Control Depression, TAB 0 Refills Cholecalciferol (Vitamin D-1000) 1,000 Unit Tab 1000 UNITS PO DAILY for Nutritional Supplement, #1 BOTTLE 0 Refills Clopidogrel (Plavix) 75 Mg Tab 75 MG PO DAILY for Blood Clot Prevention, #30 TAB 0 Refills Divalproex ER (Divalproex ER) 250 Mg Alison 250 MG PO HS for Control Seizures, #30 TAB 0 Refills Isosorbide Dinitrate (Isosorbide Dinitrate) 10 Mg Tab 10 MG PO TID, #60 TAB 0 Refills Lisinopril (Lisinopril) 20 Mg Tab 20 MG PO DAILY, #30 TAB 0 Refills Metoprolol Tartrate (Metoprolol Tartrate) 50 Mg Tab 50 MG PO BID, #60 TAB 0 Refills Tamsulosin (Tamsulosin) 0.4 Mg Cap 0.4 MG PO HS for Manage Prostate Problems, #30 CAP 0 Refills [Vitamin B] () Sahra Mares MD Jul 26, 2017 09:14
[2017-07-26] MEDS: CLOPIDOGREL 75 MG TAB PO SCH (09:32)
[2017-07-26] MEDS: METOPROLOL TARTRATE 50 MG TAB PO SCH (09:32)
[2017-07-26] MEDS: DOCUSATE SODIUM 50 MG/SENNA 8.6 MG TAB PO SCH (09:32)
[2017-07-26] MEDS: FAMOTIDINE 20 MG TAB PO SCH (09:32)
[2017-07-26] MEDS: CHOLECALCIFEROL (VIT D3) 1000 UNIT TAB PO SCH (09:32)
[2017-07-26] MEDS: guaiFENesin E.R. 600 MG TAB PO SCH (09:32)
[2017-07-26] MEDS: SODIUM CHLORIDE 0.9% FLUSH 10 ML FLUSH IV FLUSH SCH (09:33)
[2017-07-26] MEDS: BUDESONIDE-FORMOTEROL 160/4.5 MCG INHALER INH SCH (09:33)
[2017-07-26] MEDS: ASPIRIN 81 MG CHEW TAB CHEW SCH (09:33)
[2017-07-26] MEDS: LISINOPRIL 20 MG TAB PO SCH (09:33)
[2017-07-26] MEDS: ISOSORBIDE DINITRATE 10 MG TAB PO SCH ×2 (11:24→15:07)
[2017-07-26] MEDS: buPROPion HCL 100 MG SUSTAINED RELEASE TAB PO SCH (11:24)
[2017-07-26 13:48] LABS: CHOLESTEROL/ HDL RATIO 2.39 RATIO; HDL CHOLESTEROL 57.2 MG/DL (40.0-60.0)
--- NOTE | 2017-07-26 18:09 | PD.CARD.PN ---
Subjective Subjective Remarks Patient was seen earlier today, late entry No events overnight Up and ambulating No chest pain/SOB Objective Vital Signs / I&O Vital Signs Date Time Temp Pulse Resp B/P (MAP) Pulse Ox O2 Delivery O2 Flow Rate FiO2 07/26/17 11:25 98.2 66 18 155/78 (103) 96 07/26/17 10:00 72 07/26/17 09:00 70 07/26/17 08:00 76 07/26/17 07:30 98.0 65 18 150/83 (105) 96 07/26/17 07:00 61 07/26/17 06:42 101 07/26/17 05:02 54 07/26/17 04:14 52 07/26/17 03:32 58 07/26/17 03:09 97.4 55 118/68 (85) 98 07/26/17 02:00 56 07/26/17 01:26 75 07/26/17 00:04 97.7 62 127/60 (82) 100 07/26/17 00:00 56 07/25/17 22:00 62 07/25/17 21:00 75 07/25/17 20:00 60 07/25/17 20:00 97.7 63 120/80 (93) 100 I/O 07/25/17 07/25/17 07/25/17 07/26/17 07/26/17 07/26/17 06:59 14:59 22:59 06:59 14:59 22:59 Intake Total 240 ml 480 ml Output Total 300 ml 350 ml Balance -60 ml 130 ml Intake Oral 240 ml 480 ml Output Urine Total 300 ml 350 ml # Voids 1 # Bowel Movements 1 Physical Exam GENERAL: NAD, AAOx3 SKIN: Warm and dry. HEAD: Atraumatic. Normocephalic. EYES: Pupils equal and round. No scleral icterus. No injection or drainage. ENT: No nasal bleeding or discharge. Mucous membranes pink and moist. NECK: Trachea midline. No JVD. CARDIOVASCULAR: Regular rate and rhythm. Sternotomy healed RESPIRATORY: No accessory muscle use. Clear to auscultation. Breath sounds equal bilaterally. GASTROINTESTINAL: Abdomen soft, non-tender, nondistended. Hepatic and splenic margins not palpable. MUSCULOSKELETAL: Extremities without clubbing, cyanosis, or edema. No obvious deformities. Right femoral, no hematoma/bruit, distal pulses intact NEUROLOGICAL: Awake and alert. No obvious cranial nerve deficits. Motor grossly within normal limits. Five out of 5 muscle strength in the arms and legs. Normal speech. PSYCHIATRIC: Appropriate mood and affect; insight and judgment normal. Laboratory Laboratory Tests Test 07/26/17 04:47 White Blood Count 10.6 TH/MM3 Red Blood Count 3.37 MIL/MM3 Hemoglobin 11.1 GM/DL Hematocrit 32.6 % Mean Corpuscular Volume 96.7 FL Mean Corpuscular Hemoglobin 32.9 PG Mean Corpuscular Hemoglobin Concent 34.0 % Red Cell Distribution Width 14.0 % Platelet Count 242 TH/MM3 Mean Platelet Volume 8.7 FL Neutrophils (%) (Auto) 85.6 % Lymphocytes (%) (Auto) 8.4 % Monocytes (%) (Auto) 5.9 % Eosinophils (%) (Auto) 0.0 % Basophils (%) (Auto) 0.1 % Neutrophils # (Auto) 9.1 TH/MM3 Lymphocytes # (Auto) 0.9 TH/MM3 Monocytes # (Auto) 0.6 TH/MM3 Eosinophils # (Auto) 0.0 TH/MM3 Basophils # (Auto) 0.0 TH/MM3 CBC Comment DIFF FINAL Differential Comment Blood Urea Nitrogen 29 MG/DL Creatinine 0.80 MG/DL Random Glucose 103 MG/DL Calcium Level 8.1 MG/DL Sodium Level 141 MEQ/L Potassium Level 4.2 MEQ/L Chloride Level 107 MEQ/L Carbon Dioxide Level 27.5 MEQ/L Anion Gap 7 MEQ/L Estimat Glomerular Filtration Rate 95 ML/MIN Triglycerides Level 85 MG/DL Cholesterol Level 137 MG/DL LDL Cholesterol 63 MG/DL HDL Cholesterol 57.2 MG/DL Cholesterol/HDL Ratio 2.39 RATIO Assessment and Plan Problem List: (1) CAD (coronary artery disease) ICD Codes: I25.10 - Atherosclerotic heart disease of [place] coronary artery without angina pectoris (2) Hx of CABG ICD Codes: Z95.1 - Presence of aortocoronary bypass graft (3) NSTEMI (non-ST elevated myocardial infarction) ICD Codes: I21.4 - Non-ST elevation (NSTEMI) myocardial infarction (4) Tobacco abuse ICD Codes: Z72.0 - Tobacco use (5) COPD (chronic obstructive pulmonary disease) ICD Codes: J44.9 - Chronic obstructive pulmonary disease, unspecified (6) COPD exacerbation ICD Codes: J44.1 - Chronic obstructive pulmonary disease with (acute) exacerbation Status: Acute (7) Pneumonia ICD Codes: J18.9 - Pneumonia, unspecified organism Status: Acute (8) Leukocytosis ICD Codes: D72.829 - Elevated white blood cell count, unspecified Status: Acute Assessment and Plan 1) NSTEMI/CAD Hx of CABG (1/3 graft patent) s/p PCI of LAD with CSI atherectomy ASA/Plavix/BB/Statin/JAVON-I 2) Tobacco Abuse Cessation Plan to quit 3) Probable peripheral vascular disease [facility], but if possible will follow up outpatient with myself for further diagnostics and intervention 4) Cardiovascularly stable for discharge Jose Grove DO Jul 26, 2017 18:09
--- NOTE | 2017-07-27 07:03 | MA ---
cc: JOSE WINTERS DO DATE 07/25/2017 PROCEDURE Left heart catheterization, coronary angiogram, bypass angiogram, aortic root angiogram, moderate sedation 75 minutes, CSI atherectomy and placement of an Clearwater drug-eluting stent (3 x 22) proximal LAD. PREPROCEDURE DIAGNOSIS NSTEMI, history of CABG, coronary artery disease. POSTPROCEDURE DIAGNOSIS NSTEMI status post CSI atherectomy and placement of an Fredrick drug-eluting stent (3 x 22) to proximal LAD, history of CABG x3 (1/3 grafts patent). MEDICATIONS 1. Versed 0.5 mg. 2. Fentanyl 25 mcg. 3. Heparin 6400 units 4. Brilinta 180 mg. CONTRAST 180 cc. FLUOROSCOPY 21.4 minutes ANESTHESIA Moderate sedation 75 minutes ESTIMATED BLOOD LOSS 10 cc PROCEDURAL SUMMARY Austin Siu is a pleasant 71-year-old male who presented to [facility] emergency room due to wheezing and cough. He was found to have an elevated troponin and because of this he was recommended cardiac catheterization. The risks, benefits and alternatives were explained to him and he consented as such. He was brought to lab and prepped in the usual sterile fashion. The right femoral artery was accessed using a modified Seldinger technique and placement of a 5-Somali sheath. This was easily aspirated and flushed. A JR-4 was advanced over a J-wire to the ascending aorta and across the aortic valve for measurement of left ventricular pressures. This was pulled back across the aortic valve showing a significant gradient of aortic stenosis. JR-4 was used for selective angiography of the right coronary artery system. The saphenous vein graft to the right coronary artery system and a saphenous vein graft to the obtuse marginal. I attempted to try to find the left subclavian using the JR-4, but was unable to at that time. This was then exchanged for a JL-4 which was used for selective angiography of the left coronary artery system. 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 Pigtail was exchanged for a JR-4 catheter and a Glidewire was used to find the left subclavian. No PADILLA was found via the concern for the proximal LAD. It was felt that this needed to be intervened on. Please see notes below for further information. FINDINGS Left main overall short vessel with no significant disease. It bifurcates into an LAD and circumflex. LAD normal-size vessel with an 80% stenosis which is overall calcified in the proximal portion. Distally it has good runoff. It supplies a few small diagonals, but nothing significant. Left circumflex is a normal sized vessel with 100% occlusion in the proximal portion. RCA is a small vessel overall with 100% occlusion in the [id number] portion. PADILLA to LAD, occluded ostially. SVG to obtuse marginal with 20% disease in the proximal portion. Overall, it has good runoff and supplies two small distal obtuse marginales. SVG to RCA is 100% occluded. LVEDP 25. INTERVENTION Because of the significance of disease in the LAD, I felt like this needed to be intervened on. It was significantly calcified and so I felt that it needed atherectomy. The 5-Somali sheath was then exchanged for a 6-Somali sheath. The patient was given heparin as an anticoagulant. An EBU 3.5 catheter was engaged into the left main. A ViperWire was then advanced into the distal LAD. CSI atherectomy was done for four separate runs (three on low, one on high). A Compliant balloon (2.75 x 15) was used to dilate the lesion. An Clearwater drug-eluting stent (3 x 22) was then placed over the lesion and inflated. This was postdilated with a noncompliant balloon (3 x 15). Final angiogram shows a well opposed stent with no perforations or dissections. It was also noted that the left coronary artery system now supplies better collaterals to the distal right coronary artery system. The patient was given 180 of Brilinta. He left the labor relations director cardiovascularly stable. IMPRESSION 1. NSTEMI status post CSI atherectomy and placement of an Fredrick drug-eluting stent (3 x 22) to the proximal LAD. 2. History of CABG x3 (1/3 grafts patent). RECOMMENDATIONS 1. Mr. Siu presented with an NSTEMI and underwent stenting of his LAD as above. 2. I originally placed him on aspirin and Brilinta therapy, but in discussing with him, he is unsure if he will be able to pay for it and so he will be continued on aspirin and Plavix therapy. 3. He will be watched overnight and if stable in the morning, discharged home. 4. He will continue on his beta sravan, JAVON inhibitor and Lipitor therapy. 5. He does eventually need hernia surgery, although this is elective at this time. I would suggest that if possible waiting 12 months before removing him from Plavix if surgery is needed. 6. He does have some symptoms of claudication. [facility] and see about seeing either a vascular surgeon with and possibly seeing me in the office for possible peripheral angiogram with intervention. Thank you for allowing me to see Austin Siu. If there are any questions, please do not hesitate to call. Jose Winters DO VGP/DJL /11:08 PM /6:43 AM
== END 2017-07-26 15:36 | disposition home or self-care (01) | DRG 246 ==
LOC: NEPE 16:21 → INTOOBSV 19:14 → NEDA 19:14 → NEPGCP 20:58 → OBSVTOIN 07-23 12:38 → HCIS 07-25 11:20
PROVIDERS: ADMIT Internal Medicine; ATTEND Internal Medicine
PROC: 02C03ZZ Extirpation of Matter from Coronary Artery, One Artery, Percutaneous Approach (ICD-10-PCS; 2017-07-25)
PROC: 4A023N7 Measurement of Cardiac Sampling and Pressure, Left Heart, Percutaneous Approach (ICD-10-PCS; 2017-07-25)
PROC: B2131ZZ Fluoroscopy of Multiple Coronary Artery Bypass Grafts using Low Osmolar Contrast (ICD-10-PCS; 2017-07-25)
PROC: B2181ZZ Fluoroscopy of Left Internal Mammary Bypass Graft using Low Osmolar Contrast (ICD-10-PCS; 2017-07-25)
PROC: B2111ZZ Fluoroscopy of Multiple Coronary Arteries using Low Osmolar Contrast (ICD-10-PCS; 2017-07-25)
PROC: B3101ZZ Fluoroscopy of Thoracic Aorta using Low Osmolar Contrast (ICD-10-PCS; 2017-07-25)
PROC: 027034Z Dilation of Coronary Artery, One Artery with Drug-eluting Intraluminal Device, Percutaneous Approach (ICD-10-PCS; principal; 2017-07-25 12:30)
DX: I21.4 Non-ST elevation (NSTEMI) myocardial infarction (principal); J18.9 Pneumonia, unspecified organism; J96.20 Acute and chronic respiratory failure, unspecified whether with hypoxia or hypercapnia; J44.1 Chronic obstructive pulmonary disease with (acute) exacerbation; J44.0 Chronic obstructive pulmonary disease with (acute) lower respiratory infection; T82.218A Other mechanical complication of coronary artery bypass graft, initial encounter; I10 Essential (primary) hypertension; I25.2 Old myocardial infarction; Z86.73 Personal history of transient ischemic attack (TIA), and cerebral infarction without residual deficits; K40.90 Unilateral inguinal hernia, without obstruction or gangrene, not specified as recurrent; Z95.1 Presence of aortocoronary bypass graft; F17.210 Nicotine dependence, cigarettes, uncomplicated; I25.10 Atherosclerotic heart disease of native coronary artery without angina pectoris; Z95.5 Presence of coronary angioplasty implant and graft; K46.9 Unspecified abdominal hernia without obstruction or gangrene; T38.0X5A Adverse effect of glucocorticoids and synthetic analogues, initial encounter; D72.828 Other elevated white blood cell count; E78.5 Hyperlipidemia, unspecified; I73.9 Peripheral vascular disease, unspecified
CPT/HCPCS: 71045; 80048; 80053; 80061; 82550; 82552; 83036; 83605; 83735; 84100; 84439; 84443; 84484; 85002; 85007; 85025; 85027; 85347; 85610; 85730; 87040; 87070; 87205; 87804; 92933; 93005; 93306; 93459; 93567; 94150; 94618; 94640; 94664; 96365; 96375; 96376; 99152; C1714; C1725; C1769; C1874; C1887; C1893; G0378; G8987-GO; G8988-GO; G8989-GO; J0456; J0696; J1644; J2250; J2920; J2930; J3010; J7030; J7050; Q9967